=== PATIENT | female | born 1945 | race Caucasian/White ===

== ENCOUNTER → 2018-06-10 | Outpatient (CLI) | payer MEDICARE ==
--- NOTE | 2018-06-11 15:03 | MM ---
Reason for exam: screening (asymptomatic). Last mammogram was performed 3 years and 7 months ago. History: Patient is postmenopausal. Benign US right guided mammotome of the right breast, August 16, 2008. Benign stereotactic core biopsy of the left breast, March 07, 2003. Core biopsy of the left breast. Took estrogen for 3 years. Physical Findings: A clinical breast exam by your physician is recommended on an annual basis and results should be correlated with mammographic findings. MG 3D Screening Mammo W/Cad Bilateral CC and MLO view(s) were taken. Prior study comparison: November 15, 2014, bilateral MG screening mammo w CAD. January 15, 2011, CAD bilateral diagnostic mammogram. The breast tissue is almost entirely fat. No significant changes when compared with prior studies. ASSESSMENT: Benign, BI-RAD 2 RECOMMENDATION: Routine screening mammogram of both breasts in 1 year.
== END | disposition home or self-care (01) ==
LOC: RADMAMWWP 08:35
PROVIDERS: ATTEND Internal Medicine
DX: Z12.31 Encounter for screening mammogram for malignant neoplasm of breast (principal)
CPT/HCPCS: 77063; 77067

== ENCOUNTER 2019-06-07 14:19 | Inpatient (IN) | payer MEDICARE ==
[2019-06-07] MEDS ORDERED: SODIUM CHLORIDE 0.9% 500 ML 500 ML IV STA (14:34)
[2019-06-07 15:05] LABS: Basophils % (A) 0 %; Eosinophils # (A) 0.1 k/uL (0-0.7); Eosinophils % (A) 1 %; HCT 38.1 % (34.0-46.0); HGB 12.7 gm/dL (11.4-16.0); Lymphocytes # (A) 1.6 k/uL (1.0-4.8); Lymphocytes % (A) 19 %; MCH 30.4 pg (25.0-35.0); MCHC 33.5 g/dL (31.0-37.0); MCV 90.7 fL (80.0-100.0); Mean Platelet Volume 7.3; Monocytes # (A) 0.4 k/uL (0-1.0); Monocytes % (A) 4 %; Neutrophils # (A) 6.1 k/uL (1.3-7.7); Neutrophils % (A) 74 %; Platelet Count 220 k/uL (150-450); RDW 13.5 % (11.5-15.5); WBC 8.3 k/uL (3.8-10.6)
[2019-06-07 15:09] LABS: Albumin 3.6 g/dL (3.5-5.0); Calcium 9.1 mg/dL (8.4-10.2); Potassium 3.7 mmol/L (3.5-5.1); Total Bilirubin 0.4 mg/dL (0.2-1.3); Total Protein 6.7 g/dL (6.3-8.2)
[2019-06-07 15:29] LABS: INR 0.9 (<1.2); Partial Thromboplastin Time 22.7 sec (22.0-30.0); Prothrombin Time 9.8 sec (9.0-12.0)
--- NOTE | 2019-06-07 15:33 | ED ---
General Adult HPI - General Chief complaint: GI Bleed Stated complaint: RECTAL BLEED Time Seen by Provider: 06/07/19 14:30 Source: patient, EMS, RN notes reviewed Mode of arrival: EMS - History of Present Illness Initial comments: This is a 74-year-old female presents emergency Department with complaint of GI bleed. Patient states she started with a little bit of blood yesterday and today she had a large bowel movement with blood. Patient states she's had a total of 3 bowel movements with blood. Patient denies being lightheaded or dizzy. Patient denies being on any blood thinners. Patient states she had a colonoscopy 3 years ago. Patient states she had a lot of abdominal cramping but no actual abdominal pain. Patient states currently she has no pain whatsoever. Patient denies any lightheadedness or dizziness. Patient denies shortness of breath or difficulty breathing. Patient denies any chest pain or palpitations. Patient denies any fever chills or cough. Patient denies any recent history of vomiting or diarrhea. - Related Data Allergies Allergy/AdvReac Type Severity Reaction Status Date / Time codeine AdvReac Nausea & Verified 06/07/19 15:13 Vomiting Review of Systems ROS Statement: Those systems with pertinent positive or pertinent negative responses have been documented in the HPI. ROS Other: All systems not noted in ROS Statement are negative. Past Medical History Past Medical History: Hypertension Additional Past Medical History / Comment(s): sorjarens History of Any Multi-Drug Resistant Organisms: None Reported Past Surgical History: Ear Surgery Past Psychological History: No Psychological Hx Reported Smoking Status: Never smoker Past Alcohol Use History: Rare Past Drug Use History: None Reported General Exam - General Exam Comments Initial Comments: GENERAL: Patient is well-developed and well-nourished. Patient is nontoxic and well- hydrated and is in no acute distress. ENT: Neck is soft and supple. No significant lymphadenopathy is noted. Oropharynx is clear. Moist mucous membranes. Neck has full range of motion without eliciting any pain. EYES: The sclera were anicteric and conjunctiva were pink and moist. Extraocular movements were intact and pupils were equal round and reactive to light. Eyelids were unremarkable. PULMONARY: Unlabored respirations. Good breath sounds bilaterally. No audible rales rho nchi or wheezing was noted. CARDIOVASCULAR: There is a regular rate and rhythm without any murmurs gallops or rubs. ABDOMEN: Soft and nontender with normal bowel sounds. No palpable organomegaly was noted. There is no palpable pulsatile mass. SKIN: Skin is clear with no lesions or rashes and otherwise unremarkable. NEUROLOGIC: Patient is alert and oriented x3. Cranial nerves II through XII are grossly intact. Motor and sensory are also intact. Normal speech, volume and content. Symmetrical smile. MUSCULOSKELETAL: Normal extremities with adequate strength and full range of motion. LYMPHATICS: No significant lymphadenopathy is noted PSYCHIATRIC: Normal psychiatric evaluation. Course Vital Signs 06/07/19 06/07/19 14:28 15:40 Temperature 98.2 F Pulse Rate 83 75 Respiratory 17 19 Rate Blood Pressure 146/74 146/74 O2 Sat by Pulse 100 Oximetry Medical Decision Making - Medical Decision Making EKG shows sinus rhythm with occasional PAC at 75 bpm CA interval is 176 dresses 80 QT interval 44 QTC is 451 per patient's EKG shows no ST segment elevation or depression or T wave abnormalities are noted. Patient is still having rectal bleeding but is not anemic. I spoke with Dr. Holbrook she agreed to admit the patient admitted the patient and I will consult GI. - Lab Data Result diagrams: 06/07/19 14:45 06/07/19 14:45 Lab Results 06/07/19 06/07/19 06/07/19 Range/Units 14:45 14:45 14:45 WBC 8.3 (3.8-10.6) k/uL RBC 4.20 (3.80-5.40) m/uL Hgb 12.7 (11.4-16.0) gm/dL Hct 38.1 (34.0-46.0) % MCV 90.7 (80.0-100.0) fL MCH 30.4 (25.0-35.0) pg MCHC 33.5 (31.0-37.0) g/dL RDW 13.5 (11.5-15.5) % Plt Count 220 (150-450) k/uL Neutrophils % 74 % Lymphocytes % 19 % Monocytes % 4 % Eosinophils % 1 % Basophils % 0 % Neutrophils # 6.1 (1.3-7.7) k/uL Lymphocytes # 1.6 (1.0-4.8) k/uL Monocytes # 0.4 (0-1.0) k/uL Eosinophils # 0.1 (0-0.7) k/uL Basophils # 0.0 (0-0.2) k/uL PT 9.8 (9.0-12.0) sec INR 0.9 (<1.2) APTT 22.7 (22.0-30.0) sec Sodium 141 (137-145) mmol/L Potassium 3.7 (3.5-5.1) mmol/L Chloride 109 H (98-107) mmol/L Carbon Dioxide 23 (22-30) mmol/L Anion Gap 9 mmol/L BUN 12 (7-17) mg/dL Creatinine 0.93 (0.52-1.04) mg/dL Est GFR (CKD-EPI)AfAm 70 (>60 ml/min/1.73 sqM) Est GFR (CKD-EPI)NonAf 61 (>60 ml/min/1.73 sqM) Glucose 126 H (74-99) mg/dL Calcium 9.1 (8.4-10.2) mg/dL Total Bilirubin 0.4 (0.2-1.3) mg/dL AST 22 (14-36) U/L ALT 24 (9-52) U/L Alkaline Phosphatase 70 (38-126) U/L Troponin I (0.000-0.034) ng/mL Total Protein 6.7 (6.3-8.2) g/dL Albumin 3.6 (3.5-5.0) g/dL Blood Type Blood Type Recheck Bld Type Recheck Status Antibody Screen Spec Expiration Date 06/07/19 06/07/19 Range/Units 14:45 14:45 WBC (3.8-10.6) k/uL RBC (3.80-5.40) m/uL Hgb (11.4-16.0) gm/dL Hct (34.0-46.0) % MCV (80.0-100.0) fL MCH (25.0-35.0) pg MCHC (31.0-37.0) g/dL RDW (11.5-15.5) % Plt Count (150-450) k/uL Neutrophils % % Lymphocytes % % Monocytes % % Eosinophils % % Basophils % % Neutrophils # (1.3-7.7) k/uL Lymphocytes # (1.0-4.8) k/uL Monocytes # (0-1.0) k/uL Eosinophils # (0-0.7) k/uL Basophils # (0-0.2) k/uL PT (9.0-12.0) sec INR (<1.2) APTT (22.0-30.0) sec Sodium (137-145) mmol/L Potassium (3.5-5.1) mmol/L Chloride (98-107) mmol/L Carbon Dioxide (22-30) mmol/L Anion Gap mmol/L BUN (7-17) mg/dL Creatinine (0.52-1.04) mg/dL Est GFR (CKD-EPI)AfAm (>60 ml/min/1.73 sqM) Est GFR (CKD-EPI)NonAf (>60 ml/min/1.73 sqM) Glucose (74-99) mg/dL Calcium (8.4-10.2) mg/dL Total Bilirubin (0.2-1.3) mg/dL AST (14-36) U/L ALT (9-52) U/L Alkaline Phosphatase (38-126) U/L Troponin I <0.012 (0.000-0.034) ng/mL Total Protein (6.3-8.2) g/dL Albumin (3.5-5.0) g/dL Blood Type B Positive Blood Type Recheck No Previous Record Bld Type Recheck Status CABO Indicated Antibody Screen NEGATIVE Spec Expiration Date 06/10/2019 - 2345 Disposition Clinical Impression: Rectal bleeding Disposition: ADMITTED IP TO THIS [facility] Referrals: El Veliz MD [Primary Care Provider] - 1-2 days Time of Disposition: 16:11
[2019-06-07] MEDS ORDERED: SODIUM CHLORIDE 0.9% 1,000 ML IV ONE (16:13)
[2019-06-07] MEDS ORDERED: ALPRAZolam 0.5 MG TAB PO PRN (18:21)
[2019-06-07] MEDS: HYDROXYCHLOROQUINE SULFATE 200 MG TAB PO SCH (20:17)
[2019-06-07] MEDS: cycloSPORINE 0.05% OPHTH 0.4 ML DROPERETTE BOTH EYES SCH (20:17)
[2019-06-07] MEDS: LISINOPRIL 10 MG TAB PO SCH (20:17)
[2019-06-08 07:13] LABS: Basophils % (A) 0 %; Eosinophils # (A) 0.2 k/uL (0-0.7); Eosinophils % (A) 2 %; HCT 35.4 % (34.0-46.0); HGB 11.7 gm/dL (11.4-16.0); Lymphocytes # (A) 1.8 k/uL (1.0-4.8); Lymphocytes % (A) 27 %; MCH 30.4 pg (25.0-35.0); MCHC 33.1 g/dL (31.0-37.0); MCV 91.8 fL (80.0-100.0); Mean Platelet Volume 7.7; Monocytes # (A) 0.3 k/uL (0-1.0); Monocytes % (A) 4 %; Neutrophils # (A) 4.4 k/uL (1.3-7.7); Neutrophils % (A) 64 %; Platelet Count 187 k/uL (150-450); RBC 3.85 m/uL (3.80-5.40); RDW 13.5 % (11.5-15.5); WBC 6.8 k/uL (3.8-10.6)
[2019-06-08] MEDS: cycloSPORINE 0.05% OPHTH 0.4 ML DROPERETTE BOTH EYES SCH ×2 (08:53→20:17)
[2019-06-08] MEDS: HYDROXYCHLOROQUINE SULFATE 200 MG TAB PO SCH ×2 (08:53→20:17)
[2019-06-08] MEDS: PANTOPRAZOLE 40 MG TABLET PO SCH (08:53)
--- NOTE | 2019-06-08 13:20 | P.HPIM ---
History of Present Illness H&P Date: 06/08/19 Chief Complaint: Rectal bleeding This is a 74-year-old female patient of Dr. Veliz with past medical history of hypertension, GERD, Sjogren's. Patient states that symptoms started on Friday. She had dinner around 2 PM and this was on Unasyn which she normally avoids eating onions because they upset her stomach. By 4 PM she started having cramping and thought the onion soup did not agree with her. She subsequently had a very large bowel movements states she was sweating and thought she was going to pass out. She had another bowel movement like that on Friday evening. On Friday morning she was having blood was water pouring out. That seemed to be stable until she started coughing and she had another episode again with blood. She denies having any nausea, lightheadedness or dizziness. She has recently been on Levaquin for bronchitis. Her last colonoscopy was [address] Hernández and she was told that this was normal. She denies any history of diverticulitis or diverticulosis. She had a cologuard test completed March which was normal. She denies any history of hemorrhoids. Review of Systems Constitutional: Denies anorexia, Denies chills, Denies fatigue, Denies fever, Denies lethargy, Denies malaise, Denies poor appetite, Denies weakness Eyes: denies blurred vision, denies pain Ears, nose, mouth and throat: Denies dysphagia, Denies headache, Denies nasal congestion, Denies nasal discharge, Denies sore throat, Denies vertigo Cardiovascular: Denies chest pain, Denies decreased exercise tolerance, Denies dyspnea on exertion, Denies leg edema, Denies lightheadedness, Denies orthopnea, Denies shortness of breath, Denies syncope Respiratory: Denies cough, Denies cough with sputum, Denies dyspnea, Denies excessive sputum, Denies hemoptysis, Denies home oxygen, Denies wheezing Gastrointestinal: Reports abdominal pain, Reports bloating, Reports diarrhea, Reports nausea, Denies constipation, Denies vomiting Genitourinary: Denies dysuria, Denies hematuria, Denies urgency, Denies urinary frequency Musculoskeletal: Denies frequent falls, Denies gait dysfunction, Denies myalgias Integumentary: Denies pruritus, Denies rash, Denies wounds Neurological: Denies change in mentation, Denies change in speech, Denies numbness, Denies vertigo, Denies weakness Psychiatric: Denies anxiety, Denies depression Endocrine: Denies fatigue, Denies weight change Past Medical History Past Medical History: GERD/Reflux, Hypertension Additional Past Medical History / Comment(s): Sjogren's History of Any Multi-Drug Resistant Organisms: None Reported Past Surgical History: Ear Surgery Past Psychological History: No Psychological Hx Reported Smoking Status: Never smoker Past Alcohol Use History: Rare Additional Past Alcohol Use History / Comment(s): Patient is a lifelong no nsmoker. She drinks alcohol occasionally. No illicit drug use. She lives at home with her . Past Drug Use History: None Reported - Past Family History Father Family Medical History: Coronary Artery Disease (CAD) Additional Family Medical History / Comment(s): Father at age 60 from a myocardial infarction. He had history of multiple myocardial infarctions, hypertension and smoking. Mother Family Medical History: Hypertension Additional Family Medical History / Comment(s): Mother at age 91 from old age. Brother(s) Additional Family Medical History / Comment(s): Patient had 1 brother and he passed at age 63 from Alzheimer's and Parkinson's. Sister(s) Additional Family Medical History / Comment(s): Patient has 2 sisters. One sister has no major medical problems. One sister is alive at age 63 with history of drug abuse and alcohol abuse. Medications and Allergies Home Medications Medication Instructions Recorded Confirmed Type ALPRAZolam [Xanax] 1 mg PO DAILY PRN 06/07/19 06/07/19 History Albuterol Inhaler [Ventolin Hfa 2 puff INHALATION RT-Q4H PRN 06/07/19 06/07/19 History Inhaler] Echinacea 400 mg PO DAILY 06/07/19 06/07/19 History Hydroxychloroquine Sulfate 200 mg PO BID 06/07/19 06/07/19 History [Plaquenil] Levofloxacin 500 mg PO DAILY 06/07/19 06/07/19 History Lisinopril [Zestril] 10 mg PO HS 06/07/19 06/07/19 History Multivitamins, Thera [Multivitamin 1 tab PO DAILY 06/07/19 06/07/19 History (formulary)] Omeprazole/Sodium Bicarbonate 1 tab PO DAILY 06/07/19 06/07/19 History [Zegerid 20 mg Capsule] Renew Eye Drops 1 - 2 drop BOTH EYES QID PRN 06/07/19 06/07/19 History Tart Lino 1 tab PO DAILY 06/07/19 06/07/19 History cycloSPORINE [Restasis] 1 drop BOTH EYES BID 06/07/19 06/07/19 History Allergies Allergy/AdvReac Type Severity Reaction Status Date / Time latex Allergy Rash/Hives Verified 06/07/19 18:27 codeine AdvReac Nausea & Verified 06/07/19 16:10 Vomiting Physical Exam Vitals: Vital Signs Temp Pulse Pulse Resp BP BP Pulse Ox 06/08/19 07:00 97.9 F 70 18 142/81 95 06/08/19 01:07 97.7 F 72 14 149/78 95 06/07/19 19:20 98.5 F 63 18 149/81 97 06/07/19 17:58 97.6 F 68 16 153/82 98 06/07/19 17:34 98.1 F 71 18 150/64 98 06/07/19 16:00 71 16 146/74 98 06/07/19 15:40 75 19 146/74 100 06/07/19 14:28 98.2 F 83 17 146/74 Intake and Output 06/07/19 06/08/19 06/08/19 22:59 06:59 14:59 Other: Voiding Method Toilet # Voids 1 1 Gen: This is a 74-year-old female. Patient is sitting up resting in bed and appears to be comfortable and in no acute distress. HEENT: Head is atraumatic, normocephalic. Pupils equal, round. Sclerae is anicteric. NECK: Supple. No JVD. No lymphadenopathy. No thyromegaly. LUNGS: Clear to auscultation. No wheezes or rhonchi. No intercostal retractions. HEART: Regular rate and rhythm. No murmur. ABDOMEN: Soft. Bowel sounds are present. No masses. No tenderness. No epigastric tenderness. No left lower quadrant tenderness. EXTREMITIES: No pedal edema. No calf tenderness. NEUROLOGICAL: Patient is awake, alert and oriented x3. Cranial nerves 2 through 12 are grossly intact. Results CBC & Chem 7: 06/09/19 07:27 06/07/19 14:45 Labs: Abnormal Lab Results - Last 24 Hours (Table) 06/07/19 Range/Units 14:45 Chloride 109 H (98-107) mmol/L Glucose 126 H (74-99) mg/dL Thrombosis Risk Factor Assmnt - DVT/VTE Prophylaxis DVT/VTE Prophylaxis: Mechanical Prophylaxis ordered - Choose All That Apply Each Factor Represents 1 point: Obesity (BMI >25) Each Risk Factor Represents 3 Points: Age 75 years or older Thrombosis Risk Factor Assessment Total Risk Factor Score: 4 Thrombosis Risk Factor Assessment Level: Moderate Risk Assessment and Plan Plan: 1. Gastroenteritis most likely secondary to food sensitivity to onions, resolved. 2. Rectal bleeding most likely hemorrhoidal from irritation from gastroenteritis, stable. Consult with GI. One repeat CBC. 3. Hypertension. Continue lisinopril 10 mg at bedtime. 4. Gastroesophageal reflux disease. Continue Protonix. 5. History of Sjogren's. Continue Restasis, Plaquenil. 6. DVT prophylaxis. SCDs. Patient was in the observation unit. Discharge plan: Return home Impression and plan of care have been directed as dictated by the signing physician. Shannan Walker nurse practitioner acting as scribe for signing physician.
[2019-06-08 14:48] LABS: Basophils % (A) 0 %; Eosinophils # (A) 0.1 k/uL (0-0.7); Eosinophils % (A) 2 %; HCT 34.6 % (34.0-46.0); HGB 11.5 gm/dL (11.4-16.0); Lymphocytes # (A) 1.5 k/uL (1.0-4.8); Lymphocytes % (A) 23 %; MCH 30.6 pg (25.0-35.0); MCHC 33.2 g/dL (31.0-37.0); MCV 92.1 fL (80.0-100.0); Mean Platelet Volume 7.7; Monocytes # (A) 0.3 k/uL (0-1.0); Monocytes % (A) 5 %; Neutrophils # (A) 4.5 k/uL (1.3-7.7); Neutrophils % (A) 69 %; Platelet Count 186 k/uL (150-450); RBC 3.76 m/uL (3.80-5.40); RDW 13.4 % (11.5-15.5); WBC 6.5 k/uL (3.8-10.6)
[2019-06-08] MEDS ORDERED: PEG 3350-NA SULF,BICARB,CL/KCL 4,000 ML BOTTLE PO ONE ×2 (15:34→17:00)
[2019-06-08] MEDS: LISINOPRIL 10 MG TAB PO SCH (20:17)
--- NOTE | 2019-06-08 21:37 | CONS ---
CONSULTATION DATE OF SERVICE: June 08, 2019. REQUESTING PHYSICIAN: Dr. Veliz. REASON FOR CONSULTATION: Acute lower gastrointestinal bleed. HISTORY OF PRESENT ILLNESS: The patient is a pleasant 74 -year-old pleasant white female who came into the emergency room complaining of acute onset of lower abdominal pain followed by large bowel movement that happened yesterday morning. She became extremely dizzy and a few hours later she started having several bloody bowel movements with some clots. She got concerned, came into the emergency room yesterday evening and was subsequently admitted to the hospital for further evaluation. Since being in the hospital, she had 2 more episodes of bloody bowel movements. Most of the times, the bleeding is bright red but the abdominal pain has completely subsided. She denies any nausea, vomiting. No fever, chills, night sweats. She was recently diagnosed with upper respiratory infection and was treated with different antibiotics as well as steroid dose Indra for the last 4 weeks. He just finished a course of antibiotics with Levaquin 3 days ago. Her last colonoscopy was approximately [address] Hernández and according to the patient was within normal limits. She denies any recent travel history. No family history of colorectal neoplasia. PAST MEDICAL HISTORY: Significant for hypertension, gastroesophageal reflux disease. PAST SURGICAL HISTORY: Ear surgery. MEDICATIONS: At home include albuterol, Xanax, Plaquenil, Levaquin, Zestril, multivitamin, omeprazole, and Restasis eyedrops. ALLERGIES: TO LATEX AND CODEINE. SOCIAL HISTORY: No smoking. No alcohol use. FAMILY HISTORY: Father had coronary artery disease. Mother had hypertension. REVIEW OF SYSTEMS: CARDIOPULMONARY: No chest pain, shortness of breath. : No dysuria or hematuria. MUSCULOSKELETAL unremarkable. SKIN unremarkable. Endocrine unremarkable. Psychiatric unremarkable. Neurology unremarkable. ENT/vision unremarkable. CONSTITUTIONAL: No recent weight loss. No fever, chills, night sweats. PHYSICAL EXAMINATION: Blood pressure is 136/77, pulse rate 68, temperature 98. HEENT examination unremarkable. Conjunctivae pink. Sclerae anicteric. Oral cavity no lesions. Neck: No JVD or lymph node enlargement. CHEST: Clear to auscultation. HEART: Regular rate and rhythm. ABDOMEN: Soft. Bowel sounds are positive. No organomegaly. EXTREMITIES: No pedal edema. SKIN: No rashes. NEUROLOGIC: Alert and oriented x3. No focal deficits. LAB DATA: Done at the time of admission to the hospital: WBC 8.3, hemoglobin 12.7, platelets are normal. Basic metabolic panel is within normal limits. Today hemoglobin is 11.5. IMPRESSION: This is a lady who presents to the hospital with acute onset of lower abdominal pain followed by multiple episodes of bright red blood per rectum. Initially, she thought the stools were somewhat loose but then she had fresh blood with clots. She had 5 or 6 of these episodes. Hemoglobin remains stable at 11.5 g/dL. Most likely we are dealing with acute colitis, probably infectious etiology versus ischemic colitis. Possibility of a diverticular bleed cannot be excluded. RECOMMENDATIONS: 1. Clear liquid diet. 2. We will proceed with colonoscopy tomorrow. I discussed with the patient risks, benefits, and complications of the procedure and she is agreeable to it. 3. In the meantime, I am going to monitor her CBC on a daily basis. Thank you for this consultation. JOZEFL / PAIGEN: [id number] /
[2019-06-09 07:51] LABS: HCT 37.8 % (34.0-46.0); HGB 12.2 gm/dL (11.4-16.0); MCH 29.9 pg (25.0-35.0); MCHC 32.3 g/dL (31.0-37.0); MCV 92.6 fL (80.0-100.0); Mean Platelet Volume 7.6; Platelet Count 246 k/uL (150-450); RBC 4.08 m/uL (3.80-5.40); RDW 13.7 % (11.5-15.5); WBC 6.9 k/uL (3.8-10.6)
[2019-06-09] MEDS: cycloSPORINE 0.05% OPHTH 0.4 ML DROPERETTE BOTH EYES SCH (08:37)
[2019-06-09] MEDS: PANTOPRAZOLE 40 MG TABLET PO SCH (08:37)
[2019-06-09] MEDS: HYDROXYCHLOROQUINE SULFATE 200 MG TAB PO SCH (08:38)
[2019-06-09] MEDS ORDERED: IV FLUID CONTINUATION 1,000 ML IV ONE (13:47)
[2019-06-09] MEDS ORDERED: PROPOFOL 10 MG/ML 20 ML VIAL IV ONE (13:53)
--- NOTE | 2019-06-09 14:13 | P.PCN ---
Date of Procedure: 06/09/19 Procedure(s) Performed: BRIEF HISTORY: Patient is a 34-year-old pleasant white female, admitted to the hospital with several episodes of rectal bleeding for the last 2 days' duration. She started having the symptoms with lower abdominal cramping followed by rectal bleeding. She is hence scheduled for an colonoscopy to evaluate further. PROCEDURE PERFORMED: Colonoscopy with biopsy. PREOPERATIVE DIAGNOSIS: Lower abdominal pain and rectal bleeding of 2 days' duration. IV sedation per Anesthesia. PROCEDURE: After informed consent was obtained, the patient, was brought into the endoscopy unit. IV sedation was administered by Anesthesia under continuous monitoring. Digital rectal examination was normal. Initially the Olympus CF-160 flexible video colonoscope was then inserted in the rectum, gradually advanced into the cecum without any difficulty. Careful examination was performed as the scope was gradually being withdrawn. Ileocecal valve and the appendiceal orifice were visualized and appeared normal. Prep was excellent. Mucosa of the cecum, ascending colon, transverse colon, appeared normal. There was segmental colitis involving the distal descending colon and the sigmoid colon from 30-50 cm from the anal verge with mucosal erythema and congestion consistent with ischemic colitis. Biopsies were done from this area. The rest of the sigmoid colon, and rectum appeared normal. Retroflexion was performed in the rectum and no lesions were seen. The patient tolerated the procedure well. IMPRESSION: Segmental colitis involving the sigmoid and proximal descending colon extending from 30-50 cm from the anal verge with mucosal erythema and congestion consistent with ischemic colitis. Status post random biopsies. The rest of the colon appeared normal. RECOMMENDATIONS: Findings of this examination were discussed with the patient as well as a family. She was advised to follow with the biopsy results. Diet will be advanced as tolerated. She can be discharged home today. She can follow up in office in 2 weeks..
[2019-06-09 14:42] VITALS: BP 170/73; PULSE 69; RESP 18; TEMP 98
--- NOTE | 2019-06-09 15:16 | P.DS ---
Providers Date of admission: 06/07/19 16:25 Expected date of discharge: 06/09/19 Attending physician: Travis Holbrook MD Consults: 06/07/19 16:13 Consult Physician Urgent Consulting Provider: Hetal Monahan Consult Reason/Comments: GI bleed Do you want consulting provider notified?: Yes Primary care physician: El Veliz [facility] Course: This is a 74-year-old female patient of Dr. Veliz with past medical history of hypertension, GERD, Sjogren's. Patient states that symptoms started on Friday. She had dinner around 2 PM and this was on Unasyn which she normally avoids eating onions because they upset her stomach. By 4 PM she started having cramping and thought the onion soup did not agree with her. She subsequently had a very large bowel movements states she was sweating and thought she was going to pass out. She had another bowel movement like that on Friday evening. On Friday morning she was having blood was water pouring out. That seemed to be stable until she started coughing and she had another episode again with blood. She denies having any nausea, lightheadedness or dizziness. She has recently been on Levaquin for bronchitis. Her last colonoscopy was [address] Hernández and she was told that this was normal. She denies any history of diverticulitis or diverticulosis. She had a cologuard test completed March which was normal. She denies any history of hemorrhoids. 06/09: Patient has been seen by GI with plan for colonoscopy today. Hemoglobin has been stable and this morning is at 12.2. Patient did have one episode of rectal bleeding yesterday at noon and none since. She underwent prep for colonoscopy without bleeding. She denies having any fever or chills. Colonoscopy revealed segmental colitis involving the sigmoid and proximal descending colon extending from 30-50 cm from the anal verge with mucosal erythema and congestion consistent with ischemic colitis. Status post random biopsies. Diet can be advanced as tolerated and she was cleared for discharge home with follow-up in the office in 2 weeks. Patient will be discharged home today in stable condition. Discharge diagnoses: 1. Gastroenteritis most likely secondary to food sensitivity to onions, resolved. 2. Rectal bleeding most likely hemorrhoidal from irritation from gastroenteritis, stable. 3. Hypertension. 4. Gastroesophageal reflux disease. 5. History of Sjogren's. Discharge plan: Return home Impression and plan of care have been directed as dictated by the signing physician. Shannan Walker nurse practitioner acting as scribe for signing physician. Patient Condition at Discharge: Good Plan - Discharge Summary Discharge Rx Participant: Yes New Discharge Prescriptions: Continue Echinacea 400 mg PO DAILY Renew Eye Drops 1 - 2 drop BOTH EYES QID PRN PRN Reason: Dry Eye(S) Omeprazole/Sodium Bicarbonate [Zegerid 20 mg Capsule] 1 tab PO DAILY Multivitamins, Thera [Multivitamin (formulary)] 1 tab PO DAILY cycloSPORINE [Restasis] 1 drop BOTH EYES BID ALPRAZolam [Xanax] 1 mg PO DAILY PRN PRN Reason: Anxiety Lisinopril [Zestril] 10 mg PO HS Hydroxychloroquine Sulfate [Plaquenil] 200 mg PO BID Albuterol Inhaler [Ventolin Hfa Inhaler] 2 puff INHALATION RT-Q4H PRN PRN Reason: Shortness Of Breath Levofloxacin 500 mg PO DAILY Tart Lino 1 tab PO DAILY Discharge Medication List ALPRAZolam [Xanax] 1 mg PO DAILY PRN 06/07/19 [History] Albuterol Inhaler [Ventolin Hfa Inhaler] 2 puff INHALATION RT-Q4H PRN 06/07/19 [History] Echinacea 400 mg PO DAILY 06/07/19 [History] Hydroxychloroquine Sulfate [Plaquenil] 200 mg PO BID 06/07/19 [History] Levofloxacin 500 mg PO DAILY 06/07/19 [History] Lisinopril [Zestril] 10 mg PO HS 06/07/19 [History] Multivitamins, Thera [Multivitamin (formulary)] 1 tab PO DAILY 06/07/19 [History] Omeprazole/Sodium Bicarbonate [Zegerid 20 mg Capsule] 1 tab PO DAILY 06/07/19 [History] Renew Eye Drops 1 - 2 drop BOTH EYES QID PRN 06/07/19 [History] Tart Lino 1 tab PO DAILY 06/07/19 [History] cycloSPORINE [Restasis] 1 drop BOTH EYES BID 06/07/19 [History] Follow up Appointment(s)/Referral(s): El Veliz MD [Primary Care Provider] - 1 Week Hetal Monahan MD [STAFF PHYSICIAN] - 2 Weeks Discharge Disposition: HOME SELF-CARE
--- NOTE | 2019-06-17 07:50 | CDI ---
Documentation Clarification Form Date: 06/17/19 From: Sharon Perera Phone: If you have a question about this query, please contact Monserrat Grewal, Log Manager at [phone] between 8am and 5pm. Admit Date: 06/09/19 Discharge Date: 06/09/19 Patient Name: Saadia Obrien Visit Number: [id number] ATTENTION: The Clinical Documentation Specialists (CDI) and [facility] Coding Staff appreciate your assistance in clarifying documentation. Please respond to the clarification below the line at the bottom and electronically sign. The CDI & [facility] Coding staff will review the response and follow-up if needed. Please note: Queries are made part of the Legal Health Record. If you have any questions, please contact the author of this message via ITS. Dear Dr.A Holbrook, Conflicting documentation has been found in the medical record: Per the procedure note and path report the patient has ischemic colitis. Per your DS: gastroenteritis most likely secondary to food sensitivity to onions. Rectal bleeding most likely hemorrhodial from irritation from gastroenteritis. History/Risk Factors: HTN, GERD, Sjogren's Clinical Indicators: She presents to ED due to rectal bleeding. Treatment: colonoscopy, advance diet as tolerated, Protonix, Dc'd on Omeprazole In your opinion, what is the most clinically appropriate diagnosis for this patient? Acute ischemic colitis Ischemic colitis Gastroenteritis Rectal bleeding, hemorrhodial Other explanation of clinical findings Unable to determine (no explanation for clinical findings) MTDD
== END 2019-06-09 17:00 | disposition home or self-care (01) | DRG 392 ==
LOC: EC 14:19 → 4SSUR 16:25 → OBSVTOIN 06-09 09:57
PROVIDERS: ADMIT Internal Medicine; ATTEND Internal Medicine
PROC: 0DBM8ZX Excision of Descending Colon, Via Natural or Artificial Opening Endoscopic, Diagnostic (ICD-10-PCS; 2019-06-09)
PROC: 0DBN8ZX Excision of Sigmoid Colon, Via Natural or Artificial Opening Endoscopic, Diagnostic (ICD-10-PCS; principal; 2019-06-09 07:30)
DX: K52.29 Other allergic and dietetic gastroenteritis and colitis (principal); K55.9 Vascular disorder of intestine, unspecified; Z91.018 Allergy to other foods; K64.9 Unspecified hemorrhoids; M35.00 Sjogren syndrome, unspecified; J40 Bronchitis, not specified as acute or chronic; I10 Essential (primary) hypertension; K21.9 Gastro-esophageal reflux disease without esophagitis; Z79.899 Other long term (current) drug therapy; Z88.5 Allergy status to narcotic agent; Z91.040 Latex allergy status; Z82.49 Family history of ischemic heart disease and other diseases of the circulatory system; Z81.2 Family history of tobacco abuse and dependence; Z82.0 Family history of epilepsy and other diseases of the nervous system; Z81.4 Family history of other substance abuse and dependence
CPT/HCPCS: 36415; 45380; 80053; 84484; 85025; 85027; 85610; 85730; 86850; 86900; 86901; 88305; 93005; 96360; 96361; 99284

== ENCOUNTER → 2019-06-25 | Outpatient (CLI) | payer MEDICARE ==
--- NOTE | 2019-06-25 11:06 | BD ---
EXAMINATION TYPE: Axial Bone Density DATE OF EXAM: 06/25/2019 COMPARISON: NONE CLINICAL HISTORY: Height: 61 Weight: 164.0 FRAX RISK QUESTIONS: Alcohol (3 or more units per day): no Family History (Parent hip fracture): no Glucocorticoids (More than 3mos): no (Ex: prednisone, prednisolone, methylprednisolone, dexamethasone, and hydrocortisone). History of Fracture in Adulthood: no Secondary Osteoporosis: 1. Type 1 Diabetes: no 2. Hyperthyroidism: no 3. Menopause before 45: no 4. Malnutrition: no 5. Chronic liver disease: no Rheumatoid Arthritis: no Current Tobacco Use: no RISK FACTORS HISTORY OF: Surgery to Spine/Hip(right/left)/Wrist (right/left): no Family History of Osteoporosis: no Active: yes Diet low in dairy products/other sources of calcium: no Postmenopausal woman: age 51 Lost more than 2 inches in height since high school: yes MEDICATIONS: hydroxychloroquin, lisinopril, restasis, xanax, vitamins Additional History: EXAM MEASUREMENTS: Bone mineral densitometry was performed using the [employer] System. Bone mineral density as measured about the Lumbar spine is: ----- L1-L4(G/cm2): 1.102 T Score Values are as follows: ----- L2: -1.1 ----- L3: -0.1 ----- L4: -0.2 ----- L1-L4: -0.7 Bone mineral density has: decreased -2.9 % since study of: 11.15.2014 Bone mineral density about the R hip (g/cm2): 0.871 Bone mineral density about the L hip (g/cm2): 0.799 T Score values are as follows: -----R Neck: -1.2 -----L Neck: -1.7 -----R Total: -1.5 -----L Total: -1.5 Bone mineral density has: decreased -5.3 % since study of: 11.15.2014 IMPRESSION: Osteopenia bilateral femora NOTE: T-SCORE=SD OF THE YOUNG ADULT MEAN.
--- NOTE | 2019-06-28 09:11 | MM ---
Reason for exam: screening (asymptomatic). Last mammogram was performed 1 year ago. History: Patient is postmenopausal. Benign US right guided mammotome of the right breast, August 16, 2008. Benign stereotactic core biopsy of the left breast, March 07, 2003. Core biopsy of the left breast. Took estrogen for 3 years. Physical Findings: A clinical breast exam by your physician is recommended on an annual basis and results should be correlated with mammographic findings. MG 3D Screening Mammo W/Cad Bilateral CC and MLO view(s) were taken. Prior study comparison: June 10, 2018, bilateral MG 3d screening mammo w/cad. November 15, 2014, bilateral MG screening mammo w CAD. There are scattered fibroglandular densities. Benign appearing bilateral calcifications. No suspicious abnormality. ASSESSMENT: Negative, BI-RAD 1 RECOMMENDATION: Routine screening mammogram of both breasts in 1 year.
== END | disposition home or self-care (01) ==
LOC: RADMAMWWP 10:02
PROVIDERS: ATTEND Internal Medicine
DX: Z12.31 Encounter for screening mammogram for malignant neoplasm of breast (principal); M85.88 Other specified disorders of bone density and structure, other site
CPT/HCPCS: 77063; 77067; 77080

== ENCOUNTER → 2019-07-07 | Outpatient (CLI) | payer MEDICARE ==
--- NOTE | 2019-07-07 15:19 | CT ---
EXAMINATION TYPE: CT angio abdomen pelvis DATE OF EXAM: 07/07/2019 HISTORY: Ischemic colitis CT DLP: 432.2mGycm Automated Exposure Control for Dose Reduction was Utilized. CONTRAST: CT scan of the abdomen and pelvis is performed with IV Contrast, patient injected with 100 mL of Isov ue 370. Three-dimensional reconstructions performed on an alternate workstation. COMPARISON: None FINDINGS: The aorta shows normal caliber and enhancement, superior mesenteric artery, celiac axis, in ferior mesenteric artery, renal arteries, common iliac, internal and external iliac, common femoral, superficial deep femoral arteries proximally are patent LUNG BASES: No significant abnormality is appreciated. LIVER/GB: No significant abnormality is appreciated. PANCREAS: No significant abnormality is seen. SPLEEN: No significant abnormality is seen. ADRENALS: No significant abnormality is seen. KIDNEYS: Focal cortical defects of the upper poles are present, there is lobular contour to both kidn eys. BOWEL: No significant abnormality is seen. UTERUS/ADNEXA: Uterus appears enlarged, there may be underlying fibroid uterus, there is a pessary in place. LYMPH NODES: No greater than 1cm abdominal or pelvic lymph nodes are appreciated. OSSEOUS STRUCTURES: Degenerative disc changes, facet arthropathy noted in the lumbar spine. OTHER: No significant additional abnormality is seen. IMPRESSION: No significant acute finding is seen to account for patient's clinical symptoms. There ma y be underlying fibroid uterus which could be better evaluated with MRI or ultrasound. Pessary in fermin ce. Patent vasculature.
--- NOTE | 2019-07-07 16:04 | ECHOF ---
Referral Reason: MEASUREMENTS -------- HEIGHT: 157.5 cm WEIGHT: 73.5 kg BP: RVIDd: 3.1 cm (< 3.3) IVSd: 0.9 cm (0.6 - 1.1) LVIDd: 4.2 cm (3.9 - 5.3) LVPWd: 1.1 cm (0.6 - 1.1) IVSs: 1.4 cm LVIDs: 2.6 cm LVPWs: 1.3 cm LA Diam: 2.9 cm (2.7 - 3.8) Ao Diam: 2.2 cm (2.0 - 3.7) AV Cusp: 1.2 cm (1.5 - 2.6) LA Diam: 3.0 cm (2.7 - 3.8) MV EXCURSION: 14.703 mm (> 18.000) MV EF SLOPE: 60 mm/s (70 - 150) EPSS: 0.1 cm MV E Pérez: 0.83 m/s MV DecT: 150 ms MV A Pérez: 0.78 m/s MV E/A Ratio: 1.06 RAP: 5.00 mmHg RVSP: 14.19 mmHg FINDINGS -------- Sinus rhythm. This was a technically good study. The left ventricular size is normal. Left ventricular wall thickness is normal. Overall left vent ricular systolic function is low-normal with, an EF between 50 - 55 %. The right ventricle is normal in size. The left atrial size is normal. The right atrial size is normal. The aortic valve is trileaflet, and appears structurally normal. No aortic stenosis or regurgitation. Mild mitral annular calcification present. Moderate mitral regurgitation is present. Mild tricuspid regurgitation present. Right ventricular systolic pressure is normal at < 35 mmHg. There is no evidence of pulmonary hypertension. There is no pulmonic regurgitation present. The aortic root size is normal. There is no pericardial effusion. CONCLUSIONS -------- 1. Sinus rhythm. 2. This was a technically good study. 3. The left ventricular size is normal. 4. Left ventricular wall thickness is normal. 5. Overall left ventricular systolic function is low-normal with, an EF between 50 - 55 %. 6. The right ventricle is normal in size. 7. The left atrial size is normal. 8. The right atrial size is normal. 9. The aortic valve is trileaflet, and appears structurally normal. No aortic stenosis or regurgitati on. 10. Mild mitral annular calcification present. 11. Moderate mitral regurgitation is present. 12. Mild tricuspid regurgitation present. 13. Right ventricular systolic pressure is normal at < 35 mmHg. 14. There is no evidence of pulmonary hypertension. 15. There is no pulmonic regurgitation present. 16. The aortic root size is normal. 17. There is no pericardial effusion. ANIMAL NURSERY WORKER: Vicki Tirado RDCS
== END | disposition home or self-care (01) ==
LOC: RADECHMAIN 12:41
PROVIDERS: ATTEND Internal Medicine
DX: K55.9 Vascular disorder of intestine, unspecified (principal)
CPT/HCPCS: 93306; 82565; 84520; 36415; 74174; Q9967

== ENCOUNTER → 2019-10-21 | Outpatient (CLI) | payer MEDICARE ==
--- NOTE | 2019-10-22 07:45 | XR ---
EXAMINATION TYPE: XR chest 2V DATE OF EXAM: 10/21/2019 COMPARISON: NONE TECHNIQUE: PA and lateral views submitted. HISTORY: Cough FINDINGS: In the right infrahilar region there is an area of subsegmental consolidation. No pneumothorax or pl eural effusion. Hyperinflation suggests COPD. Degenerative change of the spine noted. Interstitium is slightly coarsened which may represent a degree of chronic interstitial lung disease. Hyperexpansion is compatible COPD IMPRESSION: 1. There is a nodular masslike area of consolidation in the right infrahilar region. Could be on the basis of developing infiltrate although neoplastic process in the differential diagnosis. Recommend C T of the chest.. 2. COPD. Correlate for interstitial chronic lung disease or bronchitis.
== END | disposition home or self-care (01) ==
LOC: RAD 16:55
PROVIDERS: ATTEND Internal Medicine
DX: J44.9 Chronic obstructive pulmonary disease, unspecified (principal)
CPT/HCPCS: 71046

== ENCOUNTER → 2019-10-22 | Outpatient (CLI) | payer MEDICARE ==
[2019-10-22 17:23] LABS: Basophils % (A) 0 %; Eosinophils # (A) 0.3 k/uL (0-0.7); Eosinophils % (A) 2 %; HCT 40.4 % (34.0-46.0); HGB 12.6 gm/dL (11.4-16.0); Lymphocytes # (A) 0.9 k/uL (1.0-4.8); Lymphocytes % (A) 6 %; MCH 28.2 pg (25.0-35.0); MCHC 31.3 g/dL (31.0-37.0); MCV 90.3 fL (80.0-100.0); Monocytes # (A) 0.4 k/uL (0-1.0); Monocytes % (A) 3 %; Neutrophils # (A) 13.5 k/uL (1.3-7.7); Neutrophils % (A) 89 %; Platelet Count 213 k/uL (150-450); RBC 4.48 m/uL (3.80-5.40); RDW 13.3 % (11.5-15.5); WBC 15.1 k/uL (3.8-10.6)
[2019-10-22 17:31] LABS: Albumin 4.5 g/dL (3.5-5.0); Calcium 9.7 mg/dL (8.4-10.2); Potassium 5.1 mmol/L (3.5-5.1); Total Bilirubin 0.4 mg/dL (0.2-1.3)
--- NOTE | 2019-10-23 09:16 | CT ---
EXAMINATION TYPE: CT chest w con DATE OF EXAM: 10/22/2019 COMPARISON: CT AngioJet of the abdomen and pelvis dated 07/07/2019 HISTORY: cough, SOB. abnormal cxr. CT DLP: 362.6 mGycm. Automated Exposure Control for Dose Reduction was Utilized. TECHNIQUE: CT scan of the thorax is performed following with IV Contrast, patient injected with 100 mL of Isovue 300. FINDINGS: LUNGS: In the medial right middle lobe there is a masslike consolidation measuring 3.1 x 2.4 cm on soft tiss ue algorithm series 3 image 38. Just above this along the mediastinal border there is a second simila r nodular density measuring 2.1 x 1.6 cm marked on image 33. There is moderate background centrilobular and paraseptal emphysematous changes of the lungs. In the right lung apex there is a solid 3 mm pulmonary nodule on image 14. The inferior margin of this appea rs more linear on image 16, likely some associated fibrosis. There are scattered sub-4 mm pulmonary n odules in both the right upper lobe and left upper lobe such as on image 16 and 17 as well as 19 arlette ed bilaterally. In the anterior left upper lobe there is a 7 mm pulmonary nodule with surrounding enmanuel undglass attenuation. Superior segment left upper lobe 3 mm solid pulmonary nodule on image 23. Possi ble area of atelectasis versus small pulmonary nodule just medial to this on the same image. Tree-in- bud opacities seen in the right lateral lung on image 30 and on image 35. Lingular nodule measures 7 mm on image 34. 7 mm subpleural solid density in the medial right lower lung seen on image 40. There are scattered pulmonary cysts of the lower lungs. Other scattered subcentimeter pulmonary nodules see n throughout are marked on the images. MEDIASTINUM: There are no greater than 1 cm hilar or mediastinal lymph nodes. No pericardial effusi on is seen. OTHER: There is diffuse osseous demineralization and mild degenerative disc disease of the thoracic s pine with incidentally noted fusion of the lateral margin of ribs 7 and 8 on the right. IMPRESSION: 1. There are 2 masslike consolidations in the anterior medial right middle lobe. Given the other scat tered areas of tree-in-bud opacity pneumonia is a possibility however no decreased enhancement is see n within these masses to favor pneumonia and neoplasm is of primary consideration. PET CT is recommen ded for further evaluation prior to percutaneous biopsy. Additional numerous subcentimeter pulmonary nodules are seen throughout both lungs. 2. In addition to moderate COPD numerous lung cysts are seen that are smoothly marginated and can be seen in lymphangioleiomyomatosis or Langerhans' cell histiocytosis. 3. No mediastinal adenopathy.
== END | disposition home or self-care (01) ==
LOC: RADCTMAIN 16:37
PROVIDERS: ATTEND Internal Medicine
DX: J98.4 Other disorders of lung (principal); J44.9 Chronic obstructive pulmonary disease, unspecified; R91.8 Other nonspecific abnormal finding of lung field
CPT/HCPCS: 80053; 82378; 85025; 71260; 36415; Q9967

== ENCOUNTER → 2019-10-29 | Outpatient (CLI) | payer MEDICARE ==
--- NOTE | 2019-11-02 06:25 | PE ---
EXAMINATION TYPE: PET CT fusion skull to thigh DATE OF EXAM: 10/29/2019 COMPARISON: CT chest October 22, 2019 and CTA abdomen and pelvis July 07, 2019. HISTORY: Solitary pulmonary nodule. Abnormal x-ray and CT. TECHNIQUE: Following the intravenous administration of 12.351 mCi of F-18 FDG, whole body images are performed from the skull base to the midthigh. Images are reviewed on the computer in the coronal, axial, and sagittal planes. Reconstructed rotating images are created on independent workstation and reviewed on the computer. A noncontrast CT is performed in conjunction with the PET scan. SCAN: Initial Scan FINDINGS: SKULL BASE AND NECK: No areas of suspicious hypermetabolic uptake. CHEST, MEDIASTINUM, AND HILAR REGION: Background moderate underlying emphysematous change redemonstra mj diffusely throughout upper and lower lungs. Scattered areas of fairly moderate parenchymal fibros is bilaterally. Persistent area of masslike consolidation anterior right middle lung is diminished in size from most recent CT measuring 3.1 x 1.5 cm axial image 115 and is ametabolic suggests resolving pneumonia or atelectasis. Second component medial superior to this axial image 111 is significantly improved with residual subcentimeter nodularity that is ametabolic. Scattered subcentimeter nodules seen on recent CT are less well seen on PET/CT. No hypermetabolic pul monary nodules are evident. There is persistent subcentimeter nodule surrounding groundglass opacity anterior left upper lung axial image 93 for reference, area is ametabolic. Stable 7 x 5 mm scarlike o pacity or nodule near cyst in the left mid lung axial image 101 is ametabolic. No suspicious hypermetabolic or enlarged thoracic lymph nodes. ABDOMEN AND PELVIS: No areas of suspicious hypermetabolic uptake. OSSEOUS STRUCTURES: No areas of suspicious hypermetabolic uptake. OTHER CT: Large dystrophic calcifications in both breasts. Liver is low dense relative to spleen consistent with diffuse fatty infiltration. Pessary type device in the vagina is noted. Fairly moderate degenerative changes of both hips. Moderate disc space narrowing and vacuum disc phen omenon L2-L3 level. IMPRESSION: No suspicious hypermetabolic uptake to suggest neoplasm. Resolving pneumonic consolidatio n and/or atelectasis Present right mid lung anteriorly. Due to multiple subcentimeter nodules advise CT follow-up in 3-6 months time to document stability.
== END | disposition home or self-care (01) ==
LOC: RADPETMAIN 16:54
PROVIDERS: ATTEND Internal Medicine Critical Care Medicine
DX: R91.8 Other nonspecific abnormal finding of lung field (principal)
CPT/HCPCS: 78815

== ENCOUNTER → 2020-05-26 | Outpatient (CLI) | payer MEDICARE ==
--- NOTE | 2020-05-26 15:04 | CT ---
EXAMINATION TYPE: CT chest w con DATE OF EXAM: 05/26/2020 COMPARISON: CT chest 10/22/2019. PET/CT 10/29/2019. HISTORY: abn lung field CT DLP: 697 mGycm Automated exposure control for dose reduction was used. CONTRAST: CT scan of the chest is performed with IV Contrast, patient injected with 80 mL of Isovue 300. FINDINGS: LUNGS: Paraseptal and centrilobular emphysematous changes, with numerous redemonstrated thin walled pulmonar y cysts, more prominent at the lung bases. Many of the areas of groundglass opacities and tree-in-bud opacities demonstrated on 10/22/2019 CT comparison are resolved on current exam. There is near comple te resolution of the consolidation of the right middle lobe more superomedially with some persistent groundglass opacity. There is mildly decreased size of the consolidative opacity of the right middle lobe more inferomedially (4:37-40). New small focus of consolidation and groundglass opacity within the left upper lobe (4:25). Nodular o pacities of the left upper lobe at the posterior apex are increased in number (4:10). A 3 mm pulmonary nodule within the right middle lobe anteromedially is seen in the region of prior co nsolidation (4:33). Groundglass opacity of the right middle lobe at the anterior base (4:46) and is m ildly decreased versus 10/22/2019. There is new tree-in-bud opacity of the right lower lobe (4:24-26). Numerous additional pulmonary nodules and groundglass opacities of the bilateral lungs are unchanged versus 10/22/2019. No pleural effusion. No pneumothorax. The tracheobronchial tree is patent. MEDIASTINUM/SOFT TISSUES: No axillary, hilar, or mediastinal lymphadenopathy greater than 1 cm. Cardi ac size is normal. No pericardial effusion. No thoracic aortic aneurysm. Coarse calcifications of the bilateral breasts. UPPER ABDOMEN: No adrenal nodule. Fatty liver. OSSEOUS: Degenerative changes of the spine. IMPRESSION: 1. Resolution of some of the previously demonstrated pulmonary groundglass opacities and tree-in-bud opacities versus 10/22/2019, with new areas of ground glass opacities and tree-in-bud opacities of th e bilateral lungs. Findings likely represent infectious or inflammatory pneumonitis, with differentia l including mycobacterial, fungal, and bacterial etiologies. The right middle lobe consolidations are decreased versus 10/22/2019, with persistent consolidation inferomedially. 2. Emphysematous changes, as well as redemonstrated thin-walled pulmonary cysts. Primary differentia l considerations include lymphangiomatosis and lymphocytic interstitial pneumonitis. 3. Fatty liver.
== END | disposition home or self-care (01) ==
LOC: RADCTMAIN 10:25
PROVIDERS: ATTEND Internal Medicine Critical Care Medicine
DX: J43.9 Emphysema, unspecified (principal); J98.4 Other disorders of lung; Z88.5 Allergy status to narcotic agent
CPT/HCPCS: 82565; 84520; 71260; 36415; Q9967

== ENCOUNTER 2021-02-17 07:33 | Inpatient (IN) | payer MEDICARE ==
[2021-02-17] MEDS ORDERED: PIPERACILLIN-TAZOBACTAM 3.375 GM in SODIUM CHLORIDE 0.9% 100 ML IVPB STA (07:51)
--- NOTE | 2021-02-17 08:05 | ED ---
General Adult HPI - General Chief complaint: Skin/Abscess/Foreign Body Stated complaint: lt foot infection Time Seen by Provider: 02/17/21 07:35 Source: patient, RN notes reviewed, old records reviewed Mode of arrival: ambulatory Limitations: no limitations - History of Present Illness Initial comments: This is a 76-year-old female who presents to the emergency department complaining of a foot infection on the left foot foot. Patient states currently treated with antibiotics after she had gotten a blister but since she stopped antibiotics. Flexion is gotten worse and the whole foot is not red swollen and warm. Patient denies any fever chills patient is a 79. Patient denies any swelling above the ankle. Patient denies any other areas of infection. Patient states the blister was just beneath and medial to the first metatarsal. - Related Data Home Medications Medication Instructions Recorded Confirmed ALPRAZolam [Xanax] 1 mg PO DAILY PRN 06/07/19 10/28/19 Hydroxychloroquine Sulfate 200 mg PO BID 06/07/19 10/28/19 [Plaquenil] cycloSPORINE [Restasis] 1 drop BOTH EYES BID 06/07/19 10/28/19 lisinopriL [Zestril] 10 mg PO HS 06/07/19 10/28/19 Calcium Carbonate [Calcium] 600 mg PO DAILY 10/28/19 10/28/19 Fluticasone Propionate 110 Mcg 1 puff INHALATION RT-BID PRN 10/28/19 10/28/19 [Flovent 110 Mcg Inhaler (Bulk)] L.acidoph,Paracasei, B.lactis 1 each PO DAILY 10/28/19 10/28/19 [Probiotic] Multivit with Calcium,Iron,Min 1 each PO DAILY 10/28/19 10/28/19 [Women's Multivitamin] Omeprazole/Sodium Bicarbonate 1 each PO DAILY 10/28/19 10/28/19 [Zegerid 20 mg Capsule] Tart Lino 1 dose PO DAILY 10/28/19 10/28/19 Vitamin D 20 mg PO DAILY 10/28/19 10/28/19 Allergies Allergy/AdvReac Type Severity Reaction Status Date / Time latex Allergy Rash/Hives-peels Verified 10/28/19 10:37 skin codeine AdvReac Nausea & Verified 10/28/19 10:17 Vomiting Review of Systems ROS Statement: Those systems with pertinent positive or pertinent negative responses have been documented in the HPI. ROS Other: All systems not noted in ROS Statement are negative. Past Medical History Past Medical History: GERD/Reflux, Hearing Disorder / Deafness, Hypertension, Pneumonia Additional Past Medical History / Comment(s): Sjogren's, Hx of multiple episodes of pneumonia and bronchitis., gout., Deaf left ear, Hearing aid right ear., occasional vertigo. History of Any Multi-Drug Resistant Organisms: None Reported Past Surgical History: Ear Surgery Additional Past Surgical History / Comment(s): ear surgery x4, cataracts Past Anesthesia/Blood Transfusion Reactions: Motion Sickness, Postoperative Tello sea & Vomiting (PONV) Past Psychological History: No Psychological Hx Reported Smoking Status: Former smoker Past Alcohol Use History: Occasional Past Drug Use History: None Reported - Past Family History Father Family Medical History: Coronary Artery Disease (CAD) Additional Family Medical History / Comment(s): Father at age 60 from a myocardial infarction. He had history of multiple myocardial infarctions, h ypertension and smoking. Mother Family Medical History: Hypertension Additional Family Medical History / Comment(s): Mother at age 91 from old age. Brother(s) Additional Family Medical History / Comment(s): Patient had 1 brother and he passed at age 63 from Alzheimer's and Parkinson's. Sister(s) Additional Family Medical History / Comment(s): history of drug abuse and alcoho l abuse. General Exam - General Exam Comments Initial Comments: GENERAL: Patient is well-developed and well-nourished. Patient is nontoxic and well- hydrated and is in mild distress. ENT: Neck is soft and supple. No significant lymphadenopathy is noted. Oropharynx is clear. Moist mucous membranes. Neck has full range of motion without eliciting any pain. EYES: The sclera were anicteric and conjunctiva were pink and moist. Extraocular movements were intact and pupils were equal round and reactive to light. Eyelids were unremarkable. SKIN: Skin is clear with no lesions or rashes and otherwise unremarkable. NEUROLOGIC: Patient is alert and oriented x3. Cranial nerves II through XII are grossly intact. Motor and sensory are also intact. Normal speech, volume and content. Symmetrical smile. MUSCULOSKELETAL: Patient has an open wound at the distal medial aspect of the first metatarsal on the left foot. The whole foot is swollen red and warm. LYMPHATICS: No significant lymphadenopathy is noted PSYCHIATRIC: Normal psychiatric evaluation. Limitations: no limitations Course Vital Signs 02/17/21 02/17/21 02/17/21 07:34 08:38 09:00 Temperature 98.2 F Pulse Rate 74 Respiratory 16 18 18 Rate Blood Pressure 132/65 O2 Sat by Pulse 99 Oximetry 02/17/21 10:00 Temperature Pulse Rate 69 Respiratory 18 Rate Blood Pressure 144/67 O2 Sat by Pulse 98 Oximetry Medical Decision Making - Medical Decision Making Patient is being admitted for cellulitis a spoke with Dr. Veliz he agreed and I started the patient vancomycin. - Lab Data Result diagrams: 02/17/21 08:25 02/17/21 08:25 Lab Results 02/17/21 02/17/21 02/17/21 Range/Units 08:25 08:25 08:25 WBC 8.1 (3.8-10.6) k/uL RBC 4.25 (3.80-5.40) m/uL Hgb 12.8 (11.4-16.0) gm/dL Hct 37.8 (34.0-46.0) % MCV 88.8 (80.0-100.0) fL MCH 30.1 (25.0-35.0) pg MCHC 33.9 (31.0-37.0) g/dL RDW 13.1 (11.5-15.5) % Plt Count 173 (150-450) k/uL MPV 9.7 Neutrophils % 72 % Lymphocytes % 15 % Monocytes % 5 % Eosinophils % 7 % Basophils % 0 % Neutrophils # 5.9 (1.3-7.7) k/uL Lymphocytes # 1.2 (1.0-4.8) k/uL Monocytes # 0.4 (0-1.0) k/uL Eosinophils # 0.6 (0-0.7) k/uL Basophils # 0.0 (0-0.2) k/uL PT 9.7 (9.0-12.0) sec INR 0.9 (<1.2) APTT 20.8 L (22.0-30.0) sec Sodium 142 (137-145) mmol/L Potassium 4.1 (3.5-5.1) mmol/L Chloride 109 H (98-107) mmol/L Carbon Dioxide 25 (22-30) mmol/L Anion Gap 8 mmol/L BUN 18 H (7-17) mg/dL Creatinine 1.14 H (0.52-1.04) mg/dL Est GFR (CKD-EPI)AfAm 54 (>60 ml/min/1.73 sqM) Est GFR (CKD-EPI)NonAf 47 (>60 ml/min/1.73 sqM) Glucose 91 (74-99) mg/dL Plasma Lactic Acid David (0.7-2.0) mmol/L Calcium 9.5 (8.4-10.2) mg/dL Total Bilirubin 0.4 (0.2-1.3) mg/dL AST 35 (14-36) U/L ALT 24 (4-34) U/L Alkaline Phosphatase 101 (38-126) U/L Total Protein 6.9 (6.3-8.2) g/dL Albumin 4.0 (3.5-5.0) g/dL Urine Color Urine Appearance (Clear) Urine pH (5.0-8.0) Ur Specific Jamison (1.001-1.035) Urine Protein (Negative) Urine Glucose (UA) (Negative) Urine Ketones (Negative) Urine Blood (Negative) Urine Nitrite (Negative) Urine Bilirubin (Negative) Urine Urobilinogen (<2.0) mg/dL Ur Leukocyte Esterase (Negative) Urine RBC (0-5) /hpf Urine WBC (0-5) /hpf 02/17/21 02/17/21 Range/Units 08:25 09:39 WBC (3.8-10.6) k/uL RBC (3.80-5.40) m/uL Hgb (11.4-16.0) gm/dL Hct (34.0-46.0) % MCV (80.0-100.0) fL MCH (25.0-35.0) pg MCHC (31.0-37.0) g/dL RDW (11.5-15.5) % Plt Count (150-450) k/uL MPV Neutrophils % % Lymphocytes % % Monocytes % % Eosinophils % % Basophils % % Neutrophils # (1.3-7.7) k/uL Lymphocytes # (1.0-4.8) k/uL Monocytes # (0-1.0) k/uL Eosinophils # (0-0.7) k/uL Basophils # (0-0.2) k/uL PT (9.0-12.0) sec INR (<1.2) APTT (22.0-30.0) sec Sodium (137-145) mmol/L Potassium (3.5-5.1) mmol/L Chloride (98-107) mmol/L Carbon Dioxide (22-30) mmol/L Anion Gap mmol/L BUN (7-17) mg/dL Creatinine (0.52-1.04) mg/dL Est GFR (CKD-EPI)AfAm (>60 ml/min/1.73 sqM) Est GFR (CKD-EPI)NonAf (>60 ml/min/1.73 sqM) Glucose (74-99) mg/dL Plasma Lactic Acid David 1.3 (0.7-2.0) mmol/L Calcium (8.4-10.2) mg/dL Total Bilirubin (0.2-1.3) mg/dL AST (14-36) U/L ALT (4-34) U/L Alkaline Phosphatase (38-126) U/L Total Protein (6.3-8.2) g/dL Albumin (3.5-5.0) g/dL Urine Color Light Yellow Urine Appearance Clear (Clear) Urine pH 6.5 (5.0-8.0) Ur Specific Jamison 1.006 (1.001-1.035) Urine Protein Negative (Negative) Urine Glucose (UA) Negative (Negative) Urine Ketones Negative (Negative) Urine Blood Negative (Negative) Urine Nitrite Negative (Negative) Urine Bilirubin Negative (Negative) Urine Urobilinogen <2.0 (<2.0) mg/dL Ur Leukocyte Esterase Moderate H (Negative) Urine RBC <1 (0-5) /hpf Urine WBC 9 H (0-5) /hpf Disposition Clinical Impression: Cellulitis of foot Disposition: ADMITTED IP TO THIS HOSP Referrals: El Veliz MD [Primary Care Provider] - 1-2 days Time of Disposition: 11:45
[2021-02-17] MEDS: SODIUM CHLORIDE 0.9% 500 ML 500 ML IV SCH ×2 (08:31→09:31)
[2021-02-17 08:48] LABS: Basophils % (A) 0 %; Eosinophils # (A) 0.6 k/uL (0-0.7); Eosinophils % (A) 7 %; HCT 37.8 % (34.0-46.0); HGB 12.8 gm/dL (11.4-16.0); Lymphocytes # (A) 1.2 k/uL (1.0-4.8); Lymphocytes % (A) 15 %; MCH 30.1 pg (25.0-35.0); MCHC 33.9 g/dL (31.0-37.0); MCV 88.8 fL (80.0-100.0); Mean Platelet Volume 9.7; Monocytes # (A) 0.4 k/uL (0-1.0); Monocytes % (A) 5 %; Neutrophils # (A) 5.9 k/uL (1.3-7.7); Neutrophils % (A) 72 %; Platelet Count 173 k/uL (150-450); RBC 4.25 m/uL (3.80-5.40); RDW 13.1 % (11.5-15.5); WBC 8.1 k/uL (3.8-10.6)
[2021-02-17 08:53] LABS: Calcium 9.5 mg/dL (8.4-10.2); Potassium 4.1 mmol/L (3.5-5.1); Total Bilirubin 0.4 mg/dL (0.2-1.3); Total Protein 6.9 g/dL (6.3-8.2)
[2021-02-17 09:00] LABS: INR 0.9 (<1.2); Prothrombin Time 9.7 sec (9.0-12.0)
--- NOTE | 2021-02-17 09:00 | XR ---
EXAMINATION TYPE: XR foot complete LT DATE OF EXAM: 02/17/2021 COMPARISON: NONE HISTORY: Infection. Skin blister medial aspect of the foot at the level of the distal metatarsal hist ory obtained by ordering provider. TECHNIQUE: Frontal oblique and lateral left foot radiographs FINDINGS: Diffuse soft tissue swelling in the foot and included distal leg. No subcutaneous emphysema . No radiopaque foreign body seen. No aggressive or erosive osseous lesions seen. Osteoarthrosis changes noted. Joint alignment is within normal limits. IMPRESSION: Diffuse soft tissue swelling could be on the basis of edema or cellulitis, no radiographi c evidence of osteomyelitis at this time. Please note that early osteomyelitis may not be seen on fermin in film, the need for repeat radiograph or other imaging modalities should be determined on clinical basis.
[2021-02-17 09:12] LABS: Partial Thromboplastin Time 20.8 sec (22.0-30.0)
[2021-02-17 09:50] LABS: Appearance,Urine Clear (Clear); Bilirubin,Urine Negative (Negative); Blood,Urine Negative (Negative); Color,Urine Light Yellow; Glucose,Urine (UA) Negative (Negative); Ketones,Urine Negative (Negative); Leukocyte Esterase,Urine Moderate (Negative); Nitrite,Urine Negative (Negative); PH, Urine 6.5 (5.0-8.0); Protein,Urine Negative (Negative); RBC,Urine <1 /hpf (0-5); Specific Gravity,Urine 1.006 (1.001-1.035); Urobilinogen,Urine <2.0 mg/dL (<2.0); WBC,Urine 9 /hpf (0-5)
[2021-02-17] MEDS ORDERED: VANCOMYCIN IV PER PHARMACY 1 EACH MISC MISCELLANE PRN (11:45)
[2021-02-17] MEDS ORDERED: SODIUM CHLORIDE 0.9% 1,000 ML IV ONE (11:46)
[2021-02-17] MEDS ORDERED: VANCOMYCIN 1,250 MG in SODIUM CHLORIDE 0.9% 250 ML IVPB ONE (12:00)
[2021-02-17] MEDS: ACETAMINOPHEN TAB 325 MG TAB PO PRN ×2 (12:25→20:08)
[2021-02-17] MEDS ORDERED: diphenhydrAMINE 50 MG CAP PO STA (12:27)
[2021-02-17] MEDS ORDERED: ALPRAZolam 0.5 MG TAB PO PRN (16:18)
[2021-02-17] MEDS ORDERED: ARTIFICIAL TEARS-HYPROMELLOSE DROPS 15 ML BTL BOTH EYES PRN (16:18)
[2021-02-17] MEDS: KETOTIFEN 0.025% OPHTH DROPS 5 ML BTL BOTH EYES SCH (20:08)
[2021-02-17] MEDS: HYDROXYCHLOROQUINE SULFATE 200 MG TAB PO SCH (20:08)
[2021-02-17] MEDS: lisinopriL 10 MG TAB PO SCH (20:08)
[2021-02-17] MEDS: cycloSPORINE 0.05% OPHTH 0.4 ML DROPERETTE BOTH EYES SCH (20:08)
[2021-02-18 06:48] LABS: African American GFR (CKD) 59 (>60 ml/min/1.73 sqM); Non-African American GFR(CKD) 51 (>60 ml/min/1.73 sqM)
[2021-02-18] MEDS: PANTOPRAZOLE 40 MG TABLET PO SCH (07:32)
[2021-02-18] MEDS: SODIUM BICARBONATE TAB 650 MG TAB PO SCH (07:32)
[2021-02-18] MEDS: ATORVASTATIN 20 MG TAB PO SCH (07:32)
[2021-02-18] MEDS: CALCIUM CARB-VIT D 500 MG-5 MCG TAB PO SCH (07:32)
[2021-02-18] MEDS: MULTIVITAMINS, THERA 1 EACH TAB PO SCH (07:32)
[2021-02-18] MEDS: ACETAMINOPHEN TAB 325 MG TAB PO PRN ×2 (07:33→20:41)
[2021-02-18] MEDS: HYDROXYCHLOROQUINE SULFATE 200 MG TAB PO SCH ×2 (07:34→20:38)
[2021-02-18] MEDS: cycloSPORINE 0.05% OPHTH 0.4 ML DROPERETTE BOTH EYES SCH ×2 (07:34→20:38)
[2021-02-18] MEDS: CHOLECALCIFEROL 25 MCG (1000 IU) TABLET PO SCH (07:34)
[2021-02-18] MEDS: CYANOCOBALAMIN 500 MCG TAB PO SCH (07:34)
[2021-02-18] MEDS: KETOTIFEN 0.025% OPHTH DROPS 5 ML BTL BOTH EYES SCH ×2 (07:35→20:38)
[2021-02-18] MEDS: METHYLFOLATE 1000 MCG PO SCH (07:35)
[2021-02-18] MEDS: NON FORMULARY DRUG (Vitamin B Complex [Vitamin B Complex] 1 EACH Capsule) PO SCH (07:36)
--- NOTE | 2021-02-18 09:44 | P.HPIM ---
History of Present Illness H&P Date: 02/17/21 Chief Complaint: L foot infection 76-year-old female who presents to the emergency department complaining of a foot infection on the left foot foot. Patient states currently treated with antibiotics after she had gotten a blister but since she stopped antibiotics. Flexion is gotten worse and the whole foot is not red swollen and warm. Patient denies any fever chills patient is a 80. Patient denies any swelling above the ankle. Patient denies any other areas of infection. Patient states the blister was just beneath and medial to the first metatarsal. Review of Systems Constitutional: Reports chills, Denies fever Eyes: denies blurred vision, denies loss of vision Ears, nose, mouth and throat: Denies epistaxis, Denies nasal congestion Cardiovascular: Denies chest pain, Denies shortness of breath Respiratory: Denies cough, Denies dyspnea Gastrointestinal: Denies abdominal pain Musculoskeletal: Reports muscle cramps Integumentary: Denies color changes Neurological: Denies headaches, Denies loss of vision, Denies numbness Psychiatric: Denies anxiety, Denies confusion Endocrine: Denies cold intolerance, Denies heat intolerance Past Medical History Past Medical History: GERD/Reflux, Hearing Disorder / Deafness, Hypertension, Pn eumonia Additional Past Medical History / Comment(s): Sjogren's, Hx of multiple episodes of pneumonia and bronchitis., gout., Deaf left ear, Hearing aid right ear., occasional vertigo. History of Any Multi-Drug Resistant Organisms: None Reported Past Surgical History: Ear Surgery, Tubal Ligation Additional Past Surgical History / Comment(s): ear surgery x4, cataracts Past Anesthesia/Blood Transfusion Reactions: Motion Sickness, Postoperative Nausea & Vomiting (PONV) Past Psychological History: No Psychological Hx Reported Smoking Status: Never smoker Past Alcohol Use History: None Reported Additional Past Alcohol Use History / Comment(s): . Past Drug Use History: None Reported - Past Family History Father Family Medical History: Coronary Artery Disease (CAD) Additional Family Medical History / Comment(s): Father at age 60 from a myocardial infarction. He had history of multiple myocardial infarctions, hypertension and smoking. Mother Family Medical History: Hypertension Additional Family Medical History / Comment(s): Mother at age 91 from old age. Brother(s) Additional Family Medical History / Comment(s): Patient had 1 brother and he passed at age 63 from Alzheimer's and Parkinson's. Sister(s) Additional Family Medical History / Comment(s): history of drug abuse and alcohol abuse. Medications and Allergies Home Medications Medication Instructions Recorded Confirmed Type Hydroxychloroquine Sulfate 200 mg PO BID 06/07/19 02/17/21 History [Plaquenil] cycloSPORINE [Restasis] 1 drop BOTH EYES BID 06/07/19 02/17/21 History lisinopriL [Zestril] 10 mg PO HS 06/07/19 02/17/21 History L.acidoph,Paracasei, B.lactis 1 each PO DAILY 10/28/19 02/17/21 History [Probiotic] Multivit with Calcium,Iron,Min 1 each PO DAILY 10/28/19 02/17/21 History [Women's Multivitamin] Omeprazole/Sodium Bicarbonate 1 each PO DAILY 10/28/19 02/17/21 History [Zegerid 20 mg Capsule] Tart Lino 1 dose PO HS 10/28/19 02/17/21 History ALPRAZolam [Xanax] 1 mg PO DAILY PRN 02/17/21 02/17/21 History Atorvastatin [Lipitor] 20 mg PO DAILY 02/17/21 02/17/21 History Calcium Carbonate/Vitamin D3 1 tab PO DAILY 02/17/21 02/17/21 History [Caltrate 600 Plus D3 20 Mcg (800 Iu)] Carboxymethylcellulose Sodium 1 drop BOTH EYES 5XD PRN 02/17/21 02/17/21 History [Refresh Tears] Cholecalciferol [Vitamin D3 (25 25 mcg PO DAILY 02/17/21 02/17/21 History Mcg = 1000 Iu)] Cyanocobalamin [Vitamin B-12] 500 mcg PO DAILY 02/17/21 02/17/21 History Ketotifen 0.025% Ophth Soln 1 drop BOTH EYES BID 02/17/21 02/17/21 History [Zaditor] Methylfolate 1000mcg 1 tab PO DAILY 02/17/21 02/17/21 History Vitamin B Complex 1 tab PO DAILY 02/17/21 02/17/21 History Allergies Allergy/AdvReac Type Severity Reaction Status Date / Time latex Allergy Rash/Hives-peels Verified 02/17/21 13:23 skin codeine AdvReac Nausea & Verified 02/17/21 13:23 Vomiting Physical Exam Vitals: Vital Signs Temp Pulse Pulse Resp BP BP Pulse Ox 02/17/21 13:00 98 F 67 17 145/79 99 02/17/21 12:39 97.4 F L 82 18 141/78 97 02/17/21 10:00 69 18 144/67 98 02/17/21 09:00 18 02/17/21 08:38 18 02/17/21 07:34 98.2 F 74 16 132/65 99 Intake and Output 02/17/21 02/17/21 02/17/21 06:59 14:59 22:59 Other: Weight 73.028 kg Patient is well-developed and well-nourished. Patient is nontoxic and well- hydrated and is in mild distress. ENT: Neck is soft and supple. No significant lymphadenopathy is noted. Oropharynx is clear. Moist mucous membranes. Neck has full range of motion without eliciting any pain. EYES: The sclera were anicteric and conjunctiva were pink and moist. Extraocular movements were intact and pupils were equal round and reactive to light. Eye lids were unremarkable. SKIN: Skin is clear with no lesions or rashes and otherwise unremarkable. HEART; regular rate and rhythm without any murmurs; pulses are palpable LUNGS; clear to auscultate; no rales or rhonchi ABDOMEN; soft and non-tender; non-distended; bowel sounds are present. NEUROLOGIC: Patient is alert and oriented x3. Cranial nerves II through XII are grossly intact. Motor and sensory are also intact. Normal speech, volume and content. Symmetrical smile. MUSCULOSKELETAL: Patient has an open wound at the distal medial aspect of the first metatarsal on the left foot. The whole foot is swollen red and warm. LYMPHATICS: No significant lymphadenopathy is noted PSYCHIATRIC: Normal psychiatric evaluation. Results CBC & Chem 7: 02/17/21 08:25 02/18/21 05:14 Labs: Abnormal Lab Results - Last 24 Hours (Table) 02/17/21 02/17/21 02/17/21 Range/Units 08:25 08:25 09:39 APTT 20.8 L (22.0-30.0) sec Chloride 109 H (98-107) mmol/L BUN 18 H (7-17) mg/dL Creatinine 1.14 H (0.52-1.04) mg/dL Ur Leukocyte Esterase Moderate H (Negative) Urine WBC 9 H (0-5) /hpf Microbiology - Last 24 Hours (Table) 02/17/21 08:28 Wound Culture - Preliminary Foot - Left Thrombosis Risk Factor Assmnt - Choose All That Apply Each Factor Represents 1 point: Age 41-60 years, Obesity (BMI >25) Other Risk Factors: Yes Each Risk Factor Represents 2 Points: Age 61-74 years Thrombosis Risk Factor Assessment Total Risk Factor Score: 4 Thrombosis Risk Factor Assessment Level: Moderate Risk Assessment and Plan Assessment: 1. Cellulitis L foot; failing out patient treatment - will start patient on IV antibiotics; blood cultures; monitor CBC; procalcitonin; CRP - consult ID for further recommendations on antibiotics 2. Acute Renal Injury - IVF hydration with NS at 100cc/hr; will monitor strict I&Os, daily weights; renal function and electrolytes; avoid nephrotoxins and hypotention 3. Hypertention; lisinopril 4. GERD; continue with home dose of PPI 5. Vitamin D deficiency; replacement. DVT Prophylaxis; SCDs/ sq heparin CODE STATUS; FULL CODE
[2021-02-18 10:18] LABS: Anion Gap 5 mmol/L; Blood Urea Nitrogen 15 mg/dL (7-17); Calcium 8.4 mg/dL (8.4-10.2); Carbon Dioxide 22 mmol/L (22-30); Chloride 116 mmol/L (98-107); Glucose 83 mg/dL (74-99); Potassium 3.9 mmol/L (3.5-5.1); Sodium 143 mmol/L (137-145)
[2021-02-18 10:26] LABS: Basophils % (A) 0 %; Eosinophils # (A) 0.6 k/uL (0-0.7); Eosinophils % (A) 11 %; HCT 34.1 % (34.0-46.0); HGB 11.6 gm/dL (11.4-16.0); Lymphocytes # (A) 1.5 k/uL (1.0-4.8); Lymphocytes % (A) 26 %; MCH 30.9 pg (25.0-35.0); MCHC 34.1 g/dL (31.0-37.0); MCV 90.5 fL (80.0-100.0); Mean Platelet Volume 10.9; Monocytes # (A) 0.3 k/uL (0-1.0); Monocytes % (A) 5 %; Neutrophils # (A) 3.3 k/uL (1.3-7.7); Neutrophils % (A) 57 %; Platelet Count 141 k/uL (150-450); RBC 3.77 m/uL (3.80-5.40); RDW 13.4 % (11.5-15.5); WBC 5.8 k/uL (3.8-10.6)
[2021-02-18] MEDS: VANCOMYCIN 1,250 MG in SODIUM CHLORIDE 0.9% 250 ML IVPB SCH (11:24)
--- NOTE | 2021-02-18 18:57 | P.PN ---
Subjective Progress Note Date: 02/18/21 Principal diagnosis: Left foot infection- failing outpatient treatment Acute renal injury 76-year-old female who presents to the emergency department complaining of a foot infection on the left foot foot. Patient states currently treated with antibiotics after she had gotten a blister but since she stopped antibiotics. Flexion is gotten worse and the whole foot is not red swollen and warm. Patient denies any fever chills patient is a 80. Patient denies any swelling above the ankle. Patient denies any other areas of infection. Patient states the blister was just beneath and medial to the first metatarsal. 02/18/2021 Patient is seen and evaluated in room at bedside; reports improvement in pain; vital signs are reviewed and stable with a temperature of 97.9, pulse 67, respiration 18 and blood pressure of 152/75 with SpO2 of 98% on room air Labs are reviewed and reveal a normal WBC count of 5.8, hemoglobin of 11.6, hematocrit 34.1 and platelet count of 141 at bedtime trended down from 173 yesterday; sodium of 143, potassium 3.9 with B UN/creatinine of 15/1.05 which is improved from 18/1.14 yesterday; blood cultures and wound cultures are pending Patient remains on IV Zosyn; remains afebrile with a normal white blood count; continues to have significant erythema and induration at wound site; Patient has an open wound at the distal medial aspect of the first metatarsal on the left foot. The whole foot is swollen red and warm; I will place a consult for ID follow-up wound care and further recommendations on antibiotic therapy Objective - Vital Signs Vital signs: Vital Signs Temp 97.9 F 02/18/21 14:07 Pulse 67 02/18/21 14:07 Resp 17 02/18/21 14:07 BP 152/75 02/18/21 14:07 Pulse Ox 98 02/18/21 14:07 Intake & Output 02/17/21 02/18/21 02/18/21 18:59 06:59 18:59 Intake Total 360 Balance 360 Weight 73.028 kg Intake: Oral 360 Other: Voiding Method Toilet Toilet # Voids 3 1 # Bowel Movements 0 - Exam Patient is well-developed and well-nourished. Patient is nontoxic and well- hydrated and is in mild distress. Neck is soft and supple. No significant lymphadenopathy is noted. Oropharynx is clear. Moist mucous membranes. Neck has full range of motion without eliciting any pain. The sclera were anicteric and conjunctiva were pink and moist. Extraocular movements were intact and pupils were equal round and reactive to light. Eyelids were unremarkable. Skin is clear with no lesions or rashes and otherwise unremarkable. HEART; regular rate and rhythm without any murmurs; pulses are palpable LUNGS; clear to auscultate; no rales or rhonchi ABDOMEN; soft and non-tender; non-distended; bowel sounds are present. NEUROLOGIC: Patient is alert and oriented x3. Cranial nerves II through XII are grossly intact. Motor and sensory are also intact. Normal speech, volume and content. Symmetrical smile. MUSCULOSKELETAL: Patient has an open wound at the distal medial aspect of the first metatarsal on the left foot. The whole foot is swollen red and warm. - Labs CBC & Chem 7: 02/18/21 05:14 02/18/21 05:14 Labs: Abnormal Lab Results - Last 24 Hours (Table) 02/18/21 02/18/21 Range/Units 05:14 05:14 RBC 3.77 L (3.80-5.40) m/uL Plt Count 141 L (150-450) k/uL Chloride 116 H (98-107) mmol/L Creatinine 1.05 H (0.52-1.04) mg/dL Microbiology - Last 24 Hours (Table) 02/17/21 08:25 Blood Culture - Preliminary Blood No Growth after 24 hours 02/17/21 08:10 Blood Culture - Preliminary Blood No Growth after 24 hours 02/17/21 08:28 Gram Stain - Preliminary Foot - Left Wound Culture - Preliminary Assessment and Plan Assessment: 1. Cellulitis L foot/infected wound; failing out patient treatment Patient has an open wound at the distal medial aspect of the first metatarsal on the left foot. The whole foot is swollen red and warm. - will start patient on IV antibiotics; blood cultures; monitor CBC; procalcitonin; CRP - consult ID for further recommendations on antibiotics 2. Acute Renal Injury - IVF hydration with NS at 100cc/hr; will monitor strict I&Os, daily weights; renal function and electrolytes; avoid nephrotoxins and hypotention 3. Hypertention; lisinopril 4. GERD; continue with home dose of PPI 5. Vitamin D deficiency; replacement. DVT Prophylaxis; SCDs/ sq heparin CODE STATUS; FULL CODE
[2021-02-18] MEDS ORDERED: diphenhydrAMINE 25 MG CAP PO PRN (19:04)
[2021-02-18] MEDS: diphenhydrAMINE 25 MG CAP PO PRN (20:37)
[2021-02-18] MEDS: lisinopriL 10 MG TAB PO SCH (20:38)
--- NOTE | 2021-02-18 21:31 | US ---
EXAMINATION TYPE: US venous doppler duplex LE LT DATE OF EXAM: 02/18/2021 6:59 PM COMPARISON: NONE CLINICAL HISTORY: Swelling/pain. Left leg pain SIDE PERFORMED: Left TECHNIQUE: The lower extremity deep venous system is examined utilizing real time linear array sonog gianna with graded compression, doppler sonography and color-flow sonography. VESSELS IMAGED: Common Femoral Vein Deep Femoral Vein Greater Saphenous Vein * Femoral Vein Popliteal Vein Small Saphenous Vein * Proximal Calf Veins (* superficial vessels) Left Leg: Appears negative for DVT IMPRESSION: No evidence of left lower extremity DVT.
[2021-02-19] MEDS: ATORVASTATIN 20 MG TAB PO SCH (08:09)
[2021-02-19] MEDS: CYANOCOBALAMIN 500 MCG TAB PO SCH (08:09)
[2021-02-19] MEDS: CALCIUM CARB-VIT D 500 MG-5 MCG TAB PO SCH (08:09)
[2021-02-19] MEDS: SODIUM BICARBONATE TAB 650 MG TAB PO SCH (08:09)
[2021-02-19] MEDS: MULTIVITAMINS, THERA 1 EACH TAB PO SCH (08:09)
[2021-02-19] MEDS: CHOLECALCIFEROL 25 MCG (1000 IU) TABLET PO SCH (08:09)
[2021-02-19] MEDS: PANTOPRAZOLE 40 MG TABLET PO SCH (08:09)
[2021-02-19] MEDS: cycloSPORINE 0.05% OPHTH 0.4 ML DROPERETTE BOTH EYES SCH ×2 (08:10→20:04)
[2021-02-19] MEDS: HYDROXYCHLOROQUINE SULFATE 200 MG TAB PO SCH ×2 (08:10→20:04)
[2021-02-19] MEDS: KETOTIFEN 0.025% OPHTH DROPS 5 ML BTL BOTH EYES SCH ×2 (08:11→20:05)
[2021-02-19] MEDS: METHYLFOLATE 1000 MCG PO SCH (08:11)
[2021-02-19] MEDS: NON FORMULARY DRUG (Vitamin B Complex [Vitamin B Complex] 1 EACH Capsule) PO SCH (08:11)
[2021-02-19] MEDS: ACETAMINOPHEN TAB 325 MG TAB PO PRN ×2 (08:13→15:43)
[2021-02-19 08:35] LABS: Basophils % (A) 0 %; Eosinophils # (A) 0.7 k/uL (0-0.7); Eosinophils % (A) 11 %; HCT 32.8 % (34.0-46.0); HGB 11.3 gm/dL (11.4-16.0); Lymphocytes # (A) 1.5 k/uL (1.0-4.8); Lymphocytes % (A) 23 %; MCH 30.3 pg (25.0-35.0); MCHC 34.3 g/dL (31.0-37.0); MCV 88.3 fL (80.0-100.0); Mean Platelet Volume 11.6; Monocytes # (A) 0.4 k/uL (0-1.0); Monocytes % (A) 6 %; Neutrophils # (A) 3.8 k/uL (1.3-7.7); Neutrophils % (A) 59 %; Platelet Count 135 k/uL (150-450); RBC 3.71 m/uL (3.80-5.40); RDW 13.2 % (11.5-15.5); WBC 6.4 k/uL (3.8-10.6)
[2021-02-19 09:07] LABS: Anion Gap 6 mmol/L; Blood Urea Nitrogen 15 mg/dL (7-17); Calcium 8.7 mg/dL (8.4-10.2); Carbon Dioxide 20 mmol/L (22-30); Chloride 116 mmol/L (98-107); Glucose 91 mg/dL (74-99); Potassium 4.1 mmol/L (3.5-5.1); Sodium 142 mmol/L (137-145)
[2021-02-19 09:23] LABS: African American GFR (CKD) 62 (>60 ml/min/1.73 sqM); Non-African American GFR(CKD) 54 (>60 ml/min/1.73 sqM)
[2021-02-19] MEDS: VANCOMYCIN 1,250 MG in SODIUM CHLORIDE 0.9% 250 ML IVPB SCH (12:09)
--- NOTE | 2021-02-19 15:07 | P.PN ---
Subjective Progress Note Date: 02/19/21 HISTORY OF PRESENT ILLNESS 76-year-old female who presents to the emergency department complaining of a fo ot infection on the left foot foot. Patient states currently treated with antibiotics after she had gotten a blister but since she stopped antibiotics. Flexion is gotten worse and the whole foot is not red swollen and warm. Patient denies any fever chills patient is a 79. Patient denies any swelling above the ankle. Patient denies any other areas of infection. Patient states the blister was just beneath and medial to the first metatarsal. 02/18/2021 Patient is seen and evaluated in room at bedside; reports improvement in pain; vital signs are reviewed and stable with a temperature of 97.9, pulse 67, respiration 18 and blood pressure of 152/75 with SpO2 of 98% on room air Labs are reviewed and reveal a normal WBC count of 5.8, hemoglobin of 11.6, hematocrit 34.1 and platelet count of 141 at bedtime trended down from 173 yesterday; sodium of 143, potassium 3.9 with B UN/creatinine of 15/1.05 which is improved from 18/1.14 yesterday; blood cultures and wound cultures are pending Patient remains on IV Zosyn; remains afebrile with a normal white blood count; continues to have significant erythema and induration at wound site; Patient has an open wound at the distal medial aspect of the first metatarsal on the left foot. The whole foot is swollen red and warm; I will place a consult for ID follow-up wound care and further recommendations on antibiotic therapy 02/19: Ultrasound of the left lower extremity is negative for DVT. Patient remains on vancomycin. Dr. Shipman is on consult. Patient states that she is feeling a little bit better from yesterday. She has been afebrile, heart rate 60, blood pressure 166/78, pulse ox 97% on room air REVIEW OF SYSTEMS Constitutional: No fever, no chills, no night sweats. No weight change. No weakness, fatigue or lethargy. No daytime sleepiness. EENT: No headache. No blurred vision or double vision, no loss of vision. No loss of Hearing, no ringing in the ears, no dizziness. No nasal drainage or congestion. No epistaxis. No sore throat. Lungs: No shortness of breath, cough, no sputum production. No wheezing. Cardiovascular: No chest pain, no lower extremity edema. No palpitations. No paroxysmal nocturnal dyspnea. No orthopnea. No lightheadedness or dizziness. No syncopal episodes. Abdominal: No abdominal pain. No nausea, vomiting. No diarrhea. No constipation. No bloody or tarry stools.. No loss of appetite. Genitourinary: No dysuria, increased frequency, urgency. No urinary retention. Musculoskeletal: No myalgias. No muscle weakness, no gait dysfunction, no frequent falls. No back pain. No neck pain. Left foot pain Integumentary: Reports wounds, no lesions. No rash or pruritus. No unusual bruising. No change in hair or nails. Neurologic: No aphasia. No facial droop. No change in mentation. No head injury. No headache. No paralysis. No paresthesia. Psychiatric: No depression. No anxiety. No mood swings. Endocrine: No abnormal blood sugars. No weight change. No excessive sweating or thirst. No cold intolerance. PHYSICAL EXAMINATION Gen: This is a 76-year-old female. She is resting in bed and appears to be comfortable and in no acute distress. HEENT: Head is atraumatic, normocephalic. Pupils equal, round. Sclerae is anicteric. NECK: Supple. No JVD. No lymphadenopathy. No thyromegaly. LUNGS: Clear to auscultation. No wheezes or rhonchi. No intercostal r etractions. HEART: Regular rate and rhythm. No murmur. ABDOMEN: Soft. Bowel sounds are present. No masses. No tenderness. EXTREMITIES: No pedal edema. No calf tenderness. Open wound to the distal medial aspect of the first metatarsal on the left foot on the positive edema, positive warmth. NEUROLOGICAL: Patient is awake, alert and oriented x3. Cranial nerves 2 through 12 are grossly intact. ASSESSMENT AND PLAN 1. Acute cellulitis of the left foot. Continue IV antibiotics, consult with Dr Gerard wiggins. 2. Acute kidney injury. Continue to monitor, avoid nephrotoxic agents. 3. Hypertension. Continue lisinopril. 4. Gastroesophageal reflux disease. Continue Protonix. 5. Vitamin D deficiency. Continue supplement. 6. DVT prophylaxis. Lovenox. DISCHARGE PLAN Home. Impression and plan of care have been directed as dictated by the signing physician. Shannan Walker nurse practitioner acting as scribe for signing physician. Objective - Vital Signs Vital signs: Vital Signs Temp 97.4 F L 02/19/21 07:09 Pulse 68 02/19/21 07:09 Resp 17 02/19/21 07:09 BP 166/78 02/19/21 07:09 Pulse Ox 97 02/19/21 07:09 Intake & Output 02/18/21 02/19/21 02/19/21 18:59 06:59 18:59 Other: Voiding Method Toilet Toilet # Voids 1 # Bowel Movements 0 - Labs CBC & Chem 7: 02/19/21 06:58 02/19/21 06:58 Labs: Abnormal Lab Results - Last 24 Hours (Table) 02/18/21 02/18/21 Range/Units 05:14 05:14 RBC 3.77 L (3.80-5.40) m/uL Plt Count 141 L (150-450) k/uL Chloride 116 H (98-107) mmol/L Creatinine 1.05 H (0.52-1.04) mg/dL Microbiology - Last 24 Hours (Table) 02/17/21 08:25 Blood Culture - Preliminary Blood No Growth after 24 hours 02/17/21 08:10 Blood Culture - Preliminary Blood No Growth after 24 hours
[2021-02-19] MEDS: lisinopriL 10 MG TAB PO SCH (20:04)
[2021-02-19] MEDS: diphenhydrAMINE 25 MG CAP PO PRN (21:37)
--- NOTE | 2021-02-19 23:01 | P.CONS ---
History of Present Illness - Reason for Consult Consult date: 02/19/21 left foot cellulitis Requesting physician: Ava Martino - Chief Complaint left foot pain and swelling x few days - History of Present Illness Patient is a 76-year female who apparently did develop a blister on the left foot big toe dorsal aspect few weeks ago from a tight fitting shoes patient has subsequent developed cellulitis and has been treated with 2 dif ferent courses of antibiotic by her primary care physician patient not sure about the name of those antibiotics patient was told if any worsening of swelling and redness that she has to go to the hospital patient presented to the [facility] ER on Friday in the morning for evaluation of worsening swelling redness to the left big toe along with some drainage and the redness spreading up to the left leg patient was complaining of pain to be more of a dull aching throbbing intensity is about 5-6 out of 10 no radiation patient did have some chills on presentation the hospital the patient was afebrile and no fever has been recorded subsequently patient did have a normal white count with no left shift BUN/creatinine was mildly elevated urine was negative patient did have local wound cultures obtained she was started on vancomycin has been admitted to the hospital infectious disease was consulted for further management of antibiotic therapy Review of Systems Positive point has been mentioned in HPI rest of the systems are negative Past Medical History Past Medical History: GERD/Reflux, Hearing Disorder / Deafness, Hypertension, Pneumonia Additional Past Medical History / Comment(s): Sjogren's, Hx of multiple episodes of pneumonia and bronchitis., gout., Deaf left ear, Hearing aid right ear., occasional vertigo. History of Any Multi-Drug Resistant Organisms: None Reported Past Surgical History: Ear Surgery, Tubal Ligation Additional Past Surgical History / Comment(s): ear surgery x4, cataracts Past Anesthesia/Blood Transfusion Reactions: Motion Sickness, Postoperative Nausea & Vomiting (PONV) Past Psychological History: No Psychological Hx Reported Smoking Status: Never smoker Past Alcohol Use History: None Reported Additional Past Alcohol Use History / Comment(s): . Past Drug Use History: None Reported - Past Family History Father Family Medical History: Coronary Artery Disease (CAD) Additional Family Medical History / Comment(s): Father at age 60 from a myocardial infarction. He had history of multiple myocardial infarctions, hypertension and smoking. Mother Family Medical History: Hypertension Additional Family Medical History / Comment(s): Mother at age 91 from old age. Brother(s) Additional Family Medical History / Comment(s): Patient had 1 brother and he pa ssed at age 63 from Alzheimer's and Parkinson's. Sister(s) Additional Family Medical History / Comment(s): history of drug abuse and alcohol abuse. Medications and Allergies Home Medications Medication Instructions Recorded Confirmed Type Hydroxychloroquine Sulfate 200 mg PO BID 06/07/19 02/17/21 History [Plaquenil] cycloSPORINE [Restasis] 1 drop BOTH EYES BID 06/07/19 02/17/21 History lisinopriL [Zestril] 10 mg PO HS 06/07/19 02/17/21 History L.acidoph,Paracasei, B.lactis 1 each PO DAILY 10/28/19 02/17/21 History [Probiotic] Multivit with Calcium,Iron,Min 1 each PO DAILY 10/28/19 02/17/21 History [Women's Multivitamin] Omeprazole/Sodium Bicarbonate 1 each PO DAILY 10/28/19 02/17/21 History [Zegerid 20 mg Capsule] Tart Lino 1 dose PO HS 10/28/19 02/17/21 History ALPRAZolam [Xanax] 1 mg PO DAILY PRN 02/17/21 02/17/21 History Atorvastatin [Lipitor] 20 mg PO DAILY 02/17/21 02/17/21 History Calcium Carbonate/Vitamin D3 1 tab PO DAILY 02/17/21 02/17/21 History [Caltrate 600 Plus D3 20 Mcg (800 Iu)] Carboxymethylcellulose Sodium 1 drop BOTH EYES 5XD PRN 02/17/21 02/17/21 History [Refresh Tears] Cholecalciferol [Vitamin D3 (25 25 mcg PO DAILY 02/17/21 02/17/21 History Mcg = 1000 Iu)] Cyanocobalamin [Vitamin B-12] 500 mcg PO DAILY 02/17/21 02/17/21 History Ketotifen 0.025% Ophth Soln 1 drop BOTH EYES BID 02/17/21 02/17/21 History [Zaditor] Methylfolate 1000mcg 1 tab PO DAILY 02/17/21 02/17/21 History Vitamin B Complex 1 tab PO DAILY 02/17/21 02/17/21 History Allergies Allergy/AdvReac Type Severity Reaction Status Date / Time latex Allergy Rash/Hives-peels Verified 02/17/21 13:23 skin codeine AdvReac Nausea & Verified 02/17/21 13:23 Vomiting Physical Exam Vitals: Vital Signs Temp Pulse Resp BP Pulse Ox 02/19/21 20:00 98.3 F 55 L 18 175/82 99 02/19/21 14:09 97.9 F 64 17 170/80 97 02/19/21 07:09 97.4 F L 68 17 166/78 97 02/19/21 01:47 98.4 F 70 18 147/70 98 Intake and Output 02/19/21 02/19/21 02/19/21 06:59 14:59 22:59 Other: Voiding Method Toilet Toilet # Voids 1 # Bowel Movements 0 GENERAL DESCRIPTION: Elderly female lying in bed, no distress. No tachypnea or accessory muscle of respiration use. HEENT: Shows Pallor , no scleral icterus. Oral mucous membrane is dry. NECK: Trachea central, no thyromegaly. LUNGS: Unlabored breathing. Clear to auscultation anteriorly. No wheeze or crackle. HEART: S1, S2, regular rate and rhythm. ABDOMEN: Soft, no tenderness , guarding or rigidity EXTREMITIES: No edema of feet. Left big toe dorsal did have small blister minimal redness overall swelling redness of the leg has resolved no foul- smelling drainage SKIN: No rash, no masses palpable. NEUROLOGICAL: The patient is awake, alert, oriented x3, mood and affect normal. Results CBC & Chem 7: 02/19/21 06:58 02/19/21 06:58 Labs: Abnormal Lab Results - Last 24 Hours (Table) 02/19/21 02/19/21 Range/Units 06:58 06:58 RBC 3.71 L (3.80-5.40) m/uL Hgb 11.3 L (11.4-16.0) gm/dL Hct 32.8 L (34.0-46.0) % Plt Count 135 L (150-450) k/uL Chloride 116 H (98-107) mmol/L Carbon Dioxide 20 L (22-30) mmol/L Microbiology - Last 24 Hours (Table) 02/17/21 08:28 Gram Stain - Final Foot - Left Wound Culture - Final 02/17/21 08:25 Blood Culture - Preliminary Blood No Growth after 48 hours 02/17/21 08:10 Blood Culture - Preliminary Blood No Growth after 48 hours Assessment and Plan Assessment: -patient with left foot infection predominantly involving the left big toe dorsal aspect with a blister incident cellulitis of the left foot in this patient did have local wound cultures which have been negative for any resistant pathogen so far more likely from gram-positive skin merry and no evidence of any deep infection (1) Cellulitis of foot Current Visit: Yes Status: Acute Code(s): L03.119 - CELLULITIS OF UNSPECIFIED PART OF LIMB SNOMED Code(s): 583211799 Plan: 1-discontinue vancomycin 2-start the patient on cefazolin 2 g every 8 hour 3-if the patient continues to improve plan to finish therapy with oral Keflex We will follow on clinical condition and cultures to further adjust medication if needed Thank you for this consultation we will follow the patient along with you Time with Patient: Greater than 30
[2021-02-20] MEDS: NON FORMULARY DRUG (Vitamin B Complex [Vitamin B Complex] 1 EACH Capsule) PO SCH (06:52)
[2021-02-20] MEDS: METHYLFOLATE 1000 MCG PO SCH (06:52)
[2021-02-20] MEDS: PANTOPRAZOLE 40 MG TABLET PO SCH (07:05)
[2021-02-20] MEDS: CHOLECALCIFEROL 25 MCG (1000 IU) TABLET PO SCH (07:05)
[2021-02-20] MEDS: MULTIVITAMINS, THERA 1 EACH TAB PO SCH (07:05)
[2021-02-20] MEDS: CYANOCOBALAMIN 500 MCG TAB PO SCH (07:05)
[2021-02-20] MEDS: HYDROXYCHLOROQUINE SULFATE 200 MG TAB PO SCH (07:06)
[2021-02-20] MEDS: CALCIUM CARB-VIT D 500 MG-5 MCG TAB PO SCH (07:06)
[2021-02-20] MEDS: ATORVASTATIN 20 MG TAB PO SCH (07:06)
[2021-02-20] MEDS: cycloSPORINE 0.05% OPHTH 0.4 ML DROPERETTE BOTH EYES SCH (07:06)
[2021-02-20] MEDS: SODIUM BICARBONATE TAB 650 MG TAB PO SCH (07:06)
[2021-02-20] MEDS: KETOTIFEN 0.025% OPHTH DROPS 5 ML BTL BOTH EYES SCH (07:07)
[2021-02-20 07:09] VITALS: BP 151/82; PULSE 80; RESP 17; TEMP 98.5
--- NOTE | 2021-02-20 08:04 | P.DS ---
Providers Date of admission: 02/17/21 11:46 Expected date of discharge: 02/20/21 Attending physician: El Veliz Consults: 02/18/21 15:44 Consult Physician Routine Consulting Provider: Frandy Shipman Consult Reason/Comments: Cellulitis/infected wound Do you want consulting provider notified?: Yes Primary care physician: El Veliz Hospital Course: HISTORY OF PRESENT ILLNESS 76-year-old female who presents to the emergency department complaining of a foot infection on the left foot foot. Patient states currently treated with antibiotics after she had gotten a blister but since she stopped antibiotics. Flexion is gotten worse and the whole foot is not red swollen and warm. Patient denies any fever chills patient is a 79. Patient denies any swelling above the ankle. Patient denies any other areas of infection. Patient states the blister was just beneath and medial to the first metatarsal. 02/18/2021 Patient is seen and evaluated in room at bedside; reports improvement in pain; vital signs are reviewed and stable with a temperature of 97.9, pulse 67, respiration 18 and blood pressure of 152/75 with SpO2 of 98% on room air Labs are reviewed and reveal a normal WBC count of 5.8, hemoglobin of 11.6, hematocrit 34.1 and platelet count of 141 at bedtime trended down from 173 yesterday; sodium of 143, potassium 3.9 with B UN/creatinine of 15/1.05 which is improved from 18/1.14 yesterday; blood cultures and wound cultures are pending Patient remains on IV Zosyn; remains afebrile with a normal white blood count; continues to have significant erythema and induration at wound site; Patient has an open wound at the distal medial aspect of the first metatarsal on the left foot. The whole foot is swollen red and warm; I will place a consult for ID follow-up wound care and further recommendations on antibiotic therapy 02/19: Ultrasound of the left lower extremity is negative for DVT. Patient remains on vancomycin. Dr. Shipman is on consult. Patient states that she is feeling a little bit better from yesterday. She has been afebrile, heart rate 60, blood pressure 166/78, pulse ox 97% on room air 02/20: Patient has been seen by Dr. Shipman with recommendations to discontinue Vanco, start the patient on cefazolin 2 g every 8 hours. If patient continues to improve, finish therapy with oral Keflex. Patient has been afebrile, heart rate 80, blood pressure 151/82, pulse ox is 95% on room air. Blood cultures no growth after 48 hours. Wound culture has been finalized with normal skin merry. Patient states that she is feeling a lot better today. Decreased erythema to the left foot. She states she is eating well. No abdominal pain, no nausea and no diarrhea. We will discharge patient home today in stable condition. ASSESSMENT AND PLAN 1. Acute cellulitis of the left foot. 2. Acute kidney injury. 3. Hypertension. 4. Gastroesophageal reflux disease. 5. Vitamin D deficiency. DISCHARGE PLAN Home. Impression and plan of care have been directed as dictated by the signing physician. Shannan Walker nurse practitioner acting as scribe for signing physician. Patient Condition at Discharge: Good Plan - Discharge Summary Discharge Rx Participant: Yes New Discharge Prescriptions: New Cephalexin [Keflex] 500 mg PO TID #30 cap Continue cycloSPORINE [Restasis] 1 drop BOTH EYES BID lisinopriL [Zestril] 10 mg PO HS Hydroxychloroquine Sulfate [Plaquenil] 200 mg PO BID Tart Lino 1 dose PO HS Omeprazole/Sodium Bicarbonate [Zegerid 20 mg Capsule] 1 each PO DAILY Multivit with Calcium,Iron,Min [Women's Multivitamin] 1 each PO DAILY L.acidoph,Paracasei, B.lactis [Probiotic] 1 each PO DAILY Methylfolate 1000mcg 1 tab PO DAILY Vitamin B Complex 1 tab PO DAILY Cyanocobalamin [Vitamin B-12] 500 mcg PO DAILY Cholecalciferol [Vitamin D3 (25 Mcg = 1000 Iu)] 25 mcg PO DAILY Atorvastatin [Lipitor] 20 mg PO DAILY Carboxymethylcellulose Sodium [Refresh Tears] 1 drop BOTH EYES 5XD PRN PRN Reason: dry eyes Calcium Carbonate/Vitamin D3 [Caltrate 600 Plus D3 20 Mcg (800 Iu)] 1 tab PO DAILY ALPRAZolam [Xanax] 1 mg PO DAILY PRN PRN Reason: Anxiety Ketotifen 0.025% Ophth Soln [Zaditor] 1 drop BOTH EYES BID Discharge Medication List Hydroxychloroquine Sulfate [Plaquenil] 200 mg PO BID 06/07/19 [History] cycloSPORINE [Restasis] 1 drop BOTH EYES BID 06/07/19 [History] lisinopriL [Zestril] 10 mg PO HS 06/07/19 [History] L.acidoph,Paracasei, B.lactis [Probiotic] 1 each PO DAILY 10/28/19 [History] Multivit with Calcium,Iron,Min [Women's Multivitamin] 1 each PO DAILY 10/28/19 [History] Omeprazole/Sodium Bicarbonate [Zegerid 20 mg Capsule] 1 each PO DAILY 10/28/19 [History] Tart Lino 1 dose PO HS 10/28/19 [History] ALPRAZolam [Xanax] 1 mg PO DAILY PRN 02/17/21 [History] Atorvastatin [Lipitor] 20 mg PO DAILY 02/17/21 [History] Calcium Carbonate/Vitamin D3 [Caltrate 600 Plus D3 20 Mcg (800 Iu)] 1 tab PO DAILY 02/17/21 [History] Carboxymethylcellulose Sodium [Refresh Tears] 1 drop BOTH EYES 5XD PRN 02/17/21 [History] Cholecalciferol [Vitamin D3 (25 Mcg = 1000 Iu)] 25 mcg PO DAILY 02/17/21 [History] Cyanocobalamin [Vitamin B-12] 500 mcg PO DAILY 02/17/21 [History] Ketotifen 0.025% Ophth Soln [Zaditor] 1 drop BOTH EYES BID 02/17/21 [History] Methylfolate 1000mcg 1 tab PO DAILY 02/17/21 [History] Vitamin B Complex 1 tab PO DAILY 02/17/21 [History] Cephalexin [Keflex] 500 mg PO TID #30 cap 02/20/21 [Rx] Follow up Appointment(s)/Referral(s): El Veliz MD [Primary Care Provider] - 02/22/21 4:15 pm Patient Instructions/Handouts: Cellulitis (DC) Discharge Disposition: HOME SELF-CARE
[2021-02-20] MEDS ORDERED: ENOXAPARIN 40 MG/0.4 ML SYRINGE SQ SCH (09:00)
[2021-02-20] MEDS ORDERED: CEPHALEXIN 500 MG CAP PO SCH (09:00)
[2021-02-20] MEDS: ACETAMINOPHEN TAB 325 MG TAB PO PRN (09:04)
[2021-02-20] MEDS ORDERED: VANCOMYCIN TROUGH DUE 1 EACH MISC MISCELLANE ONE (11:00)
== END 2021-02-20 09:38 | disposition home or self-care (01) | DRG 603 ==
LOC: EC 07:33 → 4SSUR 11:46
PROVIDERS: ADMIT Internal Medicine; ATTEND Internal Medicine
DX: L03.116 Cellulitis of left lower limb (principal); N17.9 Acute kidney failure, unspecified; E55.9 Vitamin D deficiency, unspecified; H91.92 Unspecified hearing loss, left ear; I10 Essential (primary) hypertension; K21.9 Gastro-esophageal reflux disease without esophagitis; M35.00 Sjogren syndrome, unspecified; Z79.899 Other long term (current) drug therapy; Z87.01 Personal history of pneumonia (recurrent); Z87.891 Personal history of nicotine dependence; Z88.5 Allergy status to narcotic agent; Z91.040 Latex allergy status; Z98.51 Tubal ligation status
CPT/HCPCS: 36415; 80048; 80053; 81001; 83605; 85025; 85610; 85730; 87040; 87070; 87205; 96365; 99284

== ENCOUNTER → 2021-08-01 | Outpatient (CLI) | payer MEDICARE ==
--- NOTE | 2021-08-01 20:00 | BD ---
EXAMINATION TYPE: Axial Bone Density DATE OF EXAM: 08/01/2021 COMPARISON: 2019 CLINICAL HISTORY: Postmenopausal screening Height: 61 Weight: 161.5 FRAX RISK QUESTIONS: Alcohol (3 or more units per day): no Family History (Parent hip fracture): no Glucocorticoids (More than 3mos): no (Ex: prednisone, prednisolone, methylprednisolone, dexamethasone, and hydrocortisone). History of Fracture in Adulthood: no Secondary Osteoporosis: 1. Type 1 Diabetes: no 2. Hyperthyroidism: no 3. Menopause before 45: no 4. Malnutrition: no 5. Chronic liver disease: no Rheumatoid Arthritis: no Current Tobacco Use: no RISK FACTORS HISTORY OF: Surgery to Spine/Hip(right/left)/Wrist (right/left): no Family History of Osteoporosis: yes Active: yes Diet low in dairy products/other sources of calcium: no Postmenopausal woman: yes Lost more than 2 inches in height since high school: yes MEDICATIONS: atorvastatin, zaditor, hydroxychloroquin, lisinopril, restasis, xanax, vitamins Additional History: EXAM MEASUREMENTS: Bone mineral densitometry was performed using the [employer] System. Bone mineral density as measured about the Lumbar spine is: ----- L1-L4(G/cm2): 1.038 T Score Values are as follows: ----- L2: -1.5 ----- L3: -1.0 ----- L4: -0.7 ----- L1-L4: -1.2 Bone mineral density has: decreased -5.9 % since study of: 06.25.2019 Bone mineral density about the R hip (g/cm2): 0.888 Bone mineral density about the L hip (g/cm2): 0.803 T Score values are as follows: -----R Neck: -1.1 -----L Neck: -1.7 -----R Total: -1.8 -----L Total: -1.6 Bone mineral density has: decreased -2.8 % since study of: 06.25.2019 IMPRESSION: Osteopenia (T Score between -2.5 and -1). There is slightly increased risk of fracture and the patient may be considered for treatment. Re-Screen 2-5 years. NOTE: T-SCORE=SD OF THE YOUNG ADULT MEAN.
--- NOTE | 2021-08-06 12:05 | MM ---
Reason for exam: screening (asymptomatic). Last mammogram was performed 2 years and 1 month ago. History: Patient is postmenopausal. Benign US right guided mammotome of the right breast, August 16, 2008. Benign stereotactic core biopsy of the left breast, March 07, 2003. Core biopsy of the left breast. Took estrogen for 3 years. Physical Findings: A clinical breast exam by your physician is recommended on an annual basis and results should be correlated with mammographic findings. MG 3D Screening Mammo W/Cad Bilateral CC and MLO view(s) were taken. Prior study comparison: June 25, 2019, bilateral MG 3d screening mammo w/cad. June 10, 2018, bilateral MG 3d screening mammo w/cad. Previous mammotome biopsy in the left breast. Bilateral fat necrosis and dystrophic calcifications. No significant changes when compared with prior studies. ASSESSMENT: Benign, BI-RAD 2 RECOMMENDATION: Routine screening mammogram of both breasts in 1 year.
== END | disposition home or self-care (01) ==
LOC: RADMAMWWP 12:45
PROVIDERS: ATTEND Internal Medicine
DX: Z12.31 Encounter for screening mammogram for malignant neoplasm of breast (principal); M85.89 Other specified disorders of bone density and structure, multiple sites; Z78.0 Asymptomatic menopausal state
CPT/HCPCS: 77063; 77067; 77080

== ENCOUNTER → 2021-12-24 | Outpatient (CLI) | payer MEDICARE ==
--- NOTE | 2021-12-24 15:59 | NM ---
EXAMINATION TYPE: NM bone scan whole body DATE OF EXAM: 12/24/2021 COMPARISON: NONE HISTORY: Pain Delayed whole-body scanning was performed following the injection of 24.8 mCi Tc 99m MDP. Images acq uired 4.25 hours post injection. FINDINGS: There is intense linear areas of abnormal uptake involving the upper lumbar spine suspicious for comp ression fractures. Moderate uptake seen involving levels L3-L4 likely degenerative also could be on t he basis of previous compression deformity. Mild uptake seen throughout the lower thoracic spine like ly degenerative. Abnormal uptake involving the cervical spine the left likely degenerative. Abnormal uptake involving the feet likely post arthritic. Abnormal uptake involving the right sternoc lavicular joint likely post arthritic. Abnormal uptake involving the shoulders and first MCP joints o f the hand bilaterally likely post arthritic. IMPRESSION: Intense linear uptake upper lumbar spine presumed levels of L1 and L2 suspicious for rece nt compression fractures. Correlate with CT scan or MRI. 2. Additional nonspecific uptake involving the vertebral column likely degenerative.
== END | disposition home or self-care (01) ==
LOC: RADNMMAIN 10:25
PROVIDERS: ATTEND Physical Medicine & Rehabilitation
DX: M89.8X0 Other specified disorders of bone, multiple sites (principal)
CPT/HCPCS: 78306; A9503

== ENCOUNTER → 2025-01-06 | Outpatient (CLI) | payer MEDICARE ==
--- NOTE | 2025-01-06 13:48 | US ---
EXAMINATION TYPE: US transvaginal DATE OF EXAM: 01/06/2025 COMPARISON: NONE CLINICAL INDICATION: Female, 79 years old with history of N81.4 UTEROVAGINAL PROLAPSE, UNSPECIFIED; P reop for bladder suspension and hysterectomy. TECHNIQUE: Transvaginal (TV). Transvaginal grayscale sonographic images of the pelvis were acquired. FINDINGS: Date of LMP: Unknown, EXAM MEASUREMENTS: Uterus: 4.5 x 4.0 x 1.8 cm Endometrial Stripe: 0.3 cm Right Ovary: 1.7 x 1.3 x 1.2 cm 1. Uterus: Anteverted Left complex vascular mass within the mid uterus appears to involve the endo metrial canal.- 5.2 x 5.1 x 4.4 cm 2. Endometrium: limited visualization due to uterine lesion 3. Right Ovary: follicle seen 4. Left Ovary: Obscured by overlying bowel gas 5. Bilateral Adnexa: peristalsing bowel 6. Posterior cul-de-sac: no free fluid IMPRESSION: 1. 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 Workup for neoplasm is recommended. Additional imaging would be of benefit, MRI would be recommended. O-RADS 2021 [email or web address] [facility], , 01/06/2025 1:45 PM
== END | disposition home or self-care (01) ==
LOC: RADUSWWP 01-05 12:50
PROVIDERS: ATTEND Obstetrics & Gynecology
DX: N81.4 Uterovaginal prolapse, unspecified (principal)
CPT/HCPCS: 76830